=== PATIENT | male | born 1940 | race Caucasian/White ===

== ENCOUNTER 2017-06-05 14:06 | Inpatient (IN) | payer MEDICARE ==
[2017-06-05] VITALS (12 sets, daily range): BP systolic 106–133; BP diastolic 62–87; PULSE 55–101; RESP 16–20; TEMP 97.5–98.5; O2SAT 97–99
[~2017-06-05] VITALS: Ht 188 cm; Wt 73.0 kg
[~2017-06-05 14:06] MED LIST: APIX5TAB PO; CALC-137 PO; CAPT50TA PO; CO Q100C9 PO; HYDR50TA5 PO; ISOS30 PO; NITR0.4S SL; SYNT25TA PO; TAB-TAB PO; ZOCO40TA PO; [UNRECOGNIZED DRUG - CODE] PO
[2017-06-05] MEDS ORDERED: LEVO75TA3 PO (14:47)
[2017-06-05] MEDS ORDERED: DIGO0.12 PO (14:47)
[2017-06-05] MEDS ORDERED: CALC1TAB87 PO (14:47)
[2017-06-05] MEDS ORDERED: PRAD150C PO (14:47)
[2017-06-05] MEDS ORDERED: METO50TA11 PO (14:47)
[2017-06-05] MEDS ORDERED: NITR0.4S SL (14:47)
[2017-06-05] MEDS ORDERED: ISOS30TA3 PO (14:47)
[2017-06-05] MEDS ORDERED: ATOR40TA16 PO (14:47)
[2017-06-05] MEDS ORDERED: CART120C PO (14:47)
[2017-06-05] MEDS ORDERED: MULT-65 PO (14:47)
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
[2017-06-05 15:19] LABS: BASOPHIL % 0.2 % (0.0-2.0); EOSINOPHIL % 0.5 % (0.0-4.0); HEMATOCRIT 44.6 % (39.0-51.0); HEMO FLAGS DIFF FINAL; LYMPH % 21.7 % (9.0-44.0); LYMPHOCYTE # 1.3 TH/MM3 (1.0-4.8); MEAN CELL VOLUME 88.9 FL (80.0-100.0); MEAN CORPUSCULAR HEMOGLOBIN 29.1 PG (27.0-34.0); MEAN CORPUSCULAR HGB CONC 32.7 % (32.0-36.0); MONO % 10.7 % (0.0-8.0); NEUT % 66.9 % (16.0-70.0); PLATELET COUNT 199 TH/MM3 (150-450); RED BLOOD COUNT 5.01 MIL/MM3 (4.50-5.90); RED CELL DISTRIBUTION WIDTH 14.9 % (11.6-17.2); WHITE BLOOD COUNT 5.9 TH/MM3 (4.0-11.0)
[2017-06-05 15:27] LABS: CHLORIDE 103 MEQ/L (98-107); POTASSIUM 3.9 MEQ/L (3.5-5.1); SODIUM (NA) 139 MEQ/L (136-145)
[2017-06-05 15:30] LABS: ANION GAP 7 MEQ/L (5-15); BICARBONATE 29.2 MEQ/L (21.0-32.0); BLOOD UREA NITROGEN 25 MG/DL (7-18)
[2017-06-05 15:33] LABS: GLOMERULAR FILTRATION RATE 54 ML/MIN (>89)
--- NOTE | 2017-06-05 15:48 | RADRPT ---
EXAM DATE/TIME: 06/05/2017 15:27 [facility] COMPARISON: No previous studies available for comparison. INDICATIONS : Short of breath, chest pains for 2 months, worse today MEDICAL HISTORY : Myocardial infarction. SURGICAL HISTORY : CABG. ENCOUNTER: Initial ACUITY: 2 months PAIN SCORE: 6/10 LOCATION: Bilateral chest FINDINGS: Single AP view of the chest. 2.8 cm nodular density in the right upper lung zone may represent bony h ypertrophy at the first costochondral junction. Lungs otherwise clear. Median sternotomy wires. Cardi omediastinal silhouette within normal limits. Minimal blunting left costophrenic sulcus. No evidence of pneumothorax. CONCLUSION: 1. Nodular density right upper lung zone in region of first costochondral junction may represent bony hypertrophy. Recommend followup PA and lateral views. 2. Minimal blunting left costophrenic sulcus indicating small pleural effusion versus scarring. Chaitanya Mcallister MD on June 05, 2017 at 15:38 Board Certified Radiologist. This report was verified electronically.
[2017-06-05] MEDS ORDERED: HEPARIN-D5W 25,000 U/250 ML 250 ML IV PRN (16:00)
[2017-06-05 16:11] LABS: DIGOXIN 0.7 NG/ML (0.8-2.0)
[2017-06-05 16:27] LABS: APTT (PATIENT) 36.6 SEC (24.3-30.1); INTERNATIONAL NORMALIZED RATIO 1.1 RATIO; PROTHROMBIN TIME - PATIENT 12.3 SEC (9.8-11.6)
[2017-06-05] MEDS ORDERED: HEPARIN 25,000 UNITS-D5W 250 ML - PREMIX IV SCH (17:00)
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
[2017-06-05] MEDS ORDERED: NITROGLYCERIN 0.4 MG SL 25 TABS/BTL SL PRN (18:30)
[2017-06-05] MEDS ORDERED: LACTULOSE SYRUP 20 GM/30 ML CUP PO PRN (20:00)
[2017-06-05] MEDS ORDERED: ONDANSETRON HCL 4 MG/2 ML VIAL IV PUSH PRN (20:15)
--- NOTE | 2017-06-05 20:46 | RADRPT ---
EXAM DATE/TIME: 06/05/2017 20:12 [facility] COMPARISON: No previous studies available for comparison. INDICATIONS : Abdominal pain. MEDICAL HISTORY : Myocardial infarction. SURGICAL HISTORY : CABG. ENCOUNTER: Subsequent ACUITY: 3 months PAIN SCORE: 3/10 LOCATION: Abdomen. FINDINGS: Nonspecific gas pattern is seen with gas throughout the gastrointestinal tract. Moderate amount of re tained stool is present throughout the colon. There is post of pathologic distention free air or mass effect. CONCLUSION: Nonspecific gas pattern with moderate amount retained stool in the colon. No evidence of significant ileus or free air. Evans Hugo MD on June 05, 2017 at 20:44 Board Certified Radiologist. This report was verified electronically.
[2017-06-05] MEDS: SODIUM CHLOR 0.9% 1000 ML INJ 1,000 ML IV SCH (21:03)
[2017-06-05] MEDS: METOPROLOL SUCCINATE 25 MG EXTENDED RELEASE TAB PO SCH (21:03)
[2017-06-05] MEDS: DOCUSATE SODIUM 100 MG CAP PO SCH (21:04)
[2017-06-05] MEDS: ATORVASTATIN 40 MG TAB PO SCH (21:04)
[2017-06-05 22:55] LABS: CREATINE KINASE 474 U/L (39-308)
[2017-06-05 23:08] LABS: CKMB 10.8 NG/ML (0.5-3.6)
[2017-06-05 23:14] LABS: APTT (PATIENT) 86.8 SEC (24.3-30.1)
[2017-06-06] VITALS (22 sets, daily range): BP systolic 95–142; BP diastolic 55–88; PULSE 50–102; RESP 16–18; TEMP 97.6–98.5; O2SAT 96–98
[2017-06-06 03:55] LABS: BASOPHIL % 0.5 % (0.0-2.0); EOSINOPHIL # 0.1 TH/MM3 (0-0.4); EOSINOPHIL % 2.9 % (0.0-4.0); HEMATOCRIT 41.3 % (39.0-51.0); HEMO FLAGS DIFF FINAL; LYMPH % 31.7 % (9.0-44.0); LYMPHOCYTE # 1.2 TH/MM3 (1.0-4.8); MEAN CELL VOLUME 89.7 FL (80.0-100.0); MEAN CORPUSCULAR HEMOGLOBIN 29.7 PG (27.0-34.0); MEAN CORPUSCULAR HGB CONC 33.1 % (32.0-36.0); MONO % 11.1 % (0.0-8.0); NEUT % 53.8 % (16.0-70.0); PLATELET COUNT 153 TH/MM3 (150-450); RED CELL DISTRIBUTION WIDTH 14.8 % (11.6-17.2); WHITE BLOOD COUNT 3.8 TH/MM3 (4.0-11.0)
[2017-06-06 04:05] LABS: APTT (PATIENT) 49.6 SEC (24.3-30.1)
[2017-06-06 04:28] LABS: ANION GAP 5 MEQ/L (5-15); BICARBONATE 28.1 MEQ/L (21.0-32.0); BLOOD UREA NITROGEN 22 MG/DL (7-18); CHLORIDE 106 MEQ/L (98-107); GLOMERULAR FILTRATION RATE 80 ML/MIN (>89); POTASSIUM 4.4 MEQ/L (3.5-5.1); SODIUM (NA) 139 MEQ/L (136-145)
[2017-06-06 04:32] LABS: CREATINE KINASE 359 U/L (39-308); LDL CHOLESTEROL 43 MG/DL (0-99)
[2017-06-06 04:44] LABS: CKMB 9.2 NG/ML (0.5-3.6)
[2017-06-06] MEDS: ISOSORBIDE MONONITRATE 30 MG TAB PO SCH (05:53)
[2017-06-06] MEDS: LEVOTHYROXINE SODIUM 75 MCG TAB PO SCH (05:53)
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
[2017-06-06] MEDS: MULTIVITAMIN TAB PO SCH (08:31)
[2017-06-06] MEDS: BISACODYL EC 5 MG TABEC PO SCH (08:31)
[2017-06-06] MEDS: DOCUSATE SODIUM 100 MG CAP PO SCH ×2 (08:32→21:00)
[2017-06-06] MEDS: ASPIRIN 81 MG CHEW TAB CHEW SCH (08:32)
[2017-06-06] MEDS: DIGOXIN 0.125 MG TAB PO SCH (08:32)
[2017-06-06] MEDS: DILTIAZEM-CD 240 MG CAP ER PO SCH (08:32)
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
[2017-06-06] MEDS ORDERED: LACTULOSE SYRUP 20 GM/30 ML CUP PO ONE (09:15)
--- NOTE | 2017-06-06 09:56 | EKG ---
Date Performed: 06/06/2017 Time Performed: 03:34:24 PTAGE: 77 years EKG: Atrial flutter Possible left atrial abnormality Left axis deviation Inferior infarct - age undetermined Lateral ST-T changes are nonspecific Low QRS voltages in limb leads Abnormal ECG PREVIOUS TRACING : 06/05/2017 21.23 Since prior tracing, ventricular response atrial flutter is slightly faster. DOCTOR: Dragan Garíca Interpretating Date/Time 06/06/2017 09:56:14
--- NOTE | 2017-06-06 09:56 | EKG ---
Date Performed: 06/05/2017 Time Performed: 21:23:32 PTAGE: 77 years EKG: Atrial flutter with PVC(s) or aberrant ventricular conduction Possible left anterior fascic ular block Inferior infarct - age undetermined Lateral ST-T changes are nonspecific Low QRS voltages in limb leads Abnormal ECG PREVIOUS TRACING : 06/05/2017 14.04 Since prior tracing, ventricular response atrial flutter is slower and PVCs are now seen. DOCTOR: Dragan García Interpretating Date/Time 06/06/2017 09:55:29
--- NOTE | 2017-06-06 09:56 | EKG ---
Date Performed: 06/05/2017 Time Performed: 14:04:28 PTAGE: 77 years EKG: Atrial flutter INTRAVENTRICULAR CONDUCTION DELAY ABNORMAL ECG PREVIOUS TRACING : 08/02/2013 05.03 Since prior tracing, atrial flutter has replaced Sinus rhyt hm and ST changes are slightly more prominent. DOCTOR: Dragan García Interpretating Date/Time 06/06/2017 09:55:07
[2017-06-06] MEDS ORDERED: FUROSEMIDE 40 MG/4 ML VIAL IV PUSH ONE (11:00)
--- NOTE | 2017-06-06 11:00 | ECHRPT ---
Indication: shortness of breath CONCLUSIONS The left ventricular systolic function is low normal with an estimated ejection fraction in the rang e of 50- 55%. Wall thickness is measured at the upper limits of normal. No regional wall motion abnormalities are present. The left atrial size is moderately dilated. The right atrial size is mildly dilated. Bileaflet mitral valve prolapse (posterior>anterior.) . Mild thickening of the mitral valve leaflets Mitral annular calcification is present. Mild eccentric mitral regurgitation; may be underestimated by TTE Aortic valve sclerosis is present. Mild aortic valve regurgitation. There is trace tricuspid valve regurgitation. There is estimated mild pulmonary hypertension present (range 40-50 mmHg). The inferior vena cava is dilated. BP: 126 / 88 HR: 101 Rhythm: Atrial fibrillation MEASUREMENTS (Male / Female) Normal Values Technical Quality:Good 2D ECHO LV Diastolic Diameter PLAX 5.6 cm 4.2 - 5.9 / 3.9 - 5.3 cm LV Systolic Diameter PLAX 4.1 cm IVS Diastolic Thickness 1.2 cm 0.6 - 1.0 / 0.6 - 0.9 cm LVPW Diastolic Thickness 1.2 cm 0.6 - 1.0 / 0.6 - 0.9 cm LV Relative Wall Thickness 0.4 RV Internal Dim ED PLAX 3.3 cm LVOT Diameter 2.0 cm LA Systolic Diameter LX 5.2 cm 3.0 - 4.0 / 2.7 - 3.8 cm LV Ejection Fraction MOD 4C 54.8 % LV Cardiac Index MOD 4C 4102.8 cm/minm LV Ejection Fraction 4C AL 55.4 % LV Cardiac Index 4C AL 4268.4 cm/minm M-MODE Aortic Root Diameter MM 3.6 cm LA Systolic Diameter MM 5.2 cm LA Ao Ratio MM 1.4 AV Cusp Separation MM 2.3 cm DOPPLER AV Peak Velocity 115.0 cm/s AV Peak Gradient 5.3 mmHg AI Peak Velocity 436.0 cm/s AI Peak Gradient 76.0 mmHg AI Pressure Half Time 456.0 ms LVOT Peak Velocity 84.4 cm/s LVOT Peak Gradient 2.8 mmHg AV Area Cont Eq pk 2.3 cm MV Area PHT 4.0 cm Mitral E Point Velocity 124.0 cm/s Mitral A Point Velocity 54.8 cm/s Mitral E to A Ratio 2.3 LV E' Lateral Velocity 15.1 cm/s Mitral E to LV E' Lateral Ratio 8.2 LV E' Septal Velocity 2.3 cm/s Mitral E to LV E' Septal Ratio 53.0 TR Peak Velocity 296.0 cm/s TR Peak Gradient 35.0 mmHg FINDINGS LEFT VENTRICLE The left ventricular systolic function is low normal with an estimated ejection fraction in the rang e of 50- 55%. Wall thickness is measured at the upper limits of normal. No regional wall motion abnormalities are present. RIGHT VENTRICLE Normal right ventricular size and systolic function. LEFT ATRIUM The left atrial size is moderately dilated. RIGHT ATRIUM The right atrial size is mildly dilated. ATRIAL SEPTUM Normal atrial septal thickness without atrial level shunting by limited color doppler interrogation. AORTA The aortic root and proximal ascending aorta are normal in size on limited imaging. MITRAL VALVE Bileaflet mitral valve prolapse. Mild thickening of the mitral valve leaflets. Mitral annular calcification is present. Mild eccentric mitral regurgitation; may be underestimated by TTE AORTIC VALVE Aortic valve sclerosis is present. Mild aortic valve regurgitation. TRICUSPID VALVE There is trace tricuspid valve regurgitation. There is estimated mild pulmonary hypertension present (range 40-50 mmHg). PULMONARY VALVE The pulmonary valve is not well visualized. VESSELS The inferior vena cava is dilated. PERICARDIUM No pericardial effusion. Dragan García MD (Electronically Signed) Final Date:06 June 2017 10:59
[2017-06-06] MEDS ORDERED: REGADENOSON INJ 0.4 MG/5 ML SYR ONE (12:12)
--- NOTE | 2017-06-06 13:35 | RADRPT ---
EXAM DATE/TIME: 06/06/2017 11:52 [facility] COMPARISON: No previous studies available for comparison. INDICATIONS : Chest pain for 1 day. Angina. Myocardial infarction. DOSE: 25.5 mCi Tc99m Myoview at stress. 8.7 mCi Tc99m Myoview at rest. 0.4 mg Lexiscan STRESS SYMPTOMS: None. EJECTION FRACTION: 47% MEDICAL HISTORY : Cardiovascular disease. Congestive heart failure. Hypertension. SURGICAL HISTORY : CABG Coronary artery stent. ENCOUNTER: Initial ACUITY: 1 day PAIN SCALE: 4/10 LOCATION: Bilateral chest TECHNIQUE: The patient underwent pharmacologic stress with infusion of prescribed dose. Continuous ECG tracing was monitored during stress. Gated SPECT imaging was performed after stress and conventional SPECT i maging was performed at rest. The examination was performed on a SPECT/CT scanner, both attenuation and non-corrected datasets were reviewed. FINDINGS: DISTRIBUTION: The maximum perfused segment at stress is in the inferior wall. PERFUSION STUDY: Larged fixed perfusion abnormality is identified involving the anterior wall, lateral wall and apex. There is mild reperfusion along the inferoseptal portion of the defect. No other reversible abnormali ties are noted. GATED STUDY: Moderate generalized hypokinesia is noted. Ejection fraction is 47%. CONCLUSION: Large predominantly fixed perfusion defect involving the anterior wall, lateral wall and periapical r egion. Mild reperfusion is identified along the inferoseptal and inferoapical region of the defect. RISK CATEGORY: High (>3% Annual Mortality Rate) Evans Hugo MD on June 06, 2017 at 13:29 Board Certified Radiologist. This report was verified electronically.
--- NOTE | 2017-06-06 14:23 | RADRPT ---
EXAM DATE/TIME: 06/06/2017 13:16 [facility] COMPARISON: No previous studies available for comparison. INDICATIONS : Abnormal chest xray. RADIATION DOSE: 5.30 CTDIvol (mGy) MEDICAL HISTORY : Hypertension. Congestive heart failure. Myocardial infarction. Hypertension. SURGICAL HISTORY : CABG ENCOUNTER: Initial ACUITY: 1 day PAIN SCALE: 0/10 LOCATION: chest TECHNIQUE: Volumetric scanning of the chest was performed. Using automated exposure control and adjustment of t he mA and/or kV according to patient size, radiation dose was kept as low as reasonably achievable to obtain optimal diagnostic quality images. DICOM format image data is available electronically for r eview and comparison. Follow-up recommendations for detected pulmonary nodules are based at a minimum on nodule size and pa tient risk factors according to Fleischner Society Guidelines. FINDINGS: LUNGS: Postsurgical pleural-parenchymal scarring is identified in the left lung base. 4 mm nodule is identif ied in the superior segment of the left lower lobe. There is no evidence of consolidating airspace di sease. PLEURAE: Left basilar pleural scarring MEDIASTINUM: Heart is mildly enlarged. Calcific coronary artery disease is noted. Postsurgical changes from prior CABG are identified. AXILLAE: Within normal limits. No lymphadenopathy. MUSCULOSKELETAL: Within normal limits for patient age. MISCELLANEOUS: Gallstones are identified in the gallbladder. CONCLUSION: 1. Left basilar postsurgical scarring following CABG. 2. Mild cardiomegaly. 3. No acute cardiopulmonary process. 4. 4 mm left lower lobe nodule 5. Cholelithiasis Evans Hugo MD on June 06, 2017 at 14:18 Board Certified Radiologist. This report was verified electronically.
[2017-06-06 16:32] LABS: APTT (PATIENT) 45.1 SEC (24.3-30.1)
[2017-06-06] MEDS: SODIUM CHLOR 0.9% 1000 ML INJ 1,000 ML IV SCH (17:02)
[2017-06-06] MEDS: METOPROLOL SUCCINATE 25 MG EXTENDED RELEASE TAB PO SCH (21:31)
[2017-06-06] MEDS: ATORVASTATIN 40 MG TAB PO SCH (21:31)
[2017-06-07] VITALS (23 sets, daily range): BP systolic 118–155; BP diastolic 70–78; PULSE 61–104; RESP 16–18; TEMP 97.8–98.6; O2SAT 96–99
[2017-06-07] MEDS: LEVOTHYROXINE SODIUM 75 MCG TAB PO SCH (06:07)
[2017-06-07] MEDS: ISOSORBIDE MONONITRATE 30 MG TAB PO SCH (06:07)
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
--- NOTE | 2017-06-07 08:28 | PD.CARD.PN ---
Subjective Subjective Remarks no chest pain this AM Objective Medications Current Medications Medications (Trade) Dose Ordered Sig/Manish Route Start Time Stop Time Status Last Admin (Nitrostat Sl) 0.4 mg Q5M PRN SL 06/05/17 18:30 (Lipitor) 40 mg HS PO 06/05/17 21:00 06/06/17 21:31 (Lanoxin) 0.125 mg DAILY PO 06/06/17 09:00 06/06/17 08:32 (Cardizem Cd) 240 mg DAILY PO 06/06/17 09:00 06/06/17 08:32 (Imdur) 30 mg DAILY@0700 PO 06/06/17 07:00 06/07/17 06:07 (Synthroid) 75 mcg DAILY@0600 PO 06/06/17 06:00 06/07/17 06:07 (Toprol Xl) 75 mg HS PO 06/05/17 21:00 06/06/17 21:31 (Theragran) 1 tab DAILY PO 06/06/17 09:00 06/06/17 08:31 (Colace) 100 mg BID PO 06/05/17 21:00 06/06/17 08:32 (Dulcolax Ec) 10 mg DAILY PO 06/06/17 09:00 06/06/17 08:31 (Lactulose Liq) 30 ml DAILY PRN PO 06/05/17 20:00 (Zofran Inj) 4 mg Q6HR PRN IV PUSH 06/05/17 20:15 (Aspirin Chew) 81 mg DAILY CHEW 06/06/17 09:00 06/06/17 08:32 (Pradaxa) 150 mg BID PO 06/07/17 16:00 UNV Vital Signs / I&O Vital Signs Date Time Temp Pulse Resp B/P (MAP) Pulse Ox O2 Delivery O2 Flow Rate FiO2 06/07/17 08:00 98 06/07/17 07:00 98.4 99 18 118/78 (91) 98 06/07/17 07:00 95 06/07/17 06:03 96 06/07/17 05:00 70 06/07/17 04:00 83 06/07/17 03:00 97.8 90 16 122/73 (89) 98 06/07/17 03:00 61 06/07/17 02:07 89 06/07/17 01:00 98 06/07/17 00:00 98 06/06/17 23:00 97.8 102 18 108/63 (78) 97 06/06/17 23:00 100 06/06/17 22:00 60 06/06/17 21:00 50 06/06/17 20:00 66 06/06/17 19:48 21 06/06/17 19:00 97.6 55 16 95/55 (68) 97 06/06/17 19:00 76 06/06/17 18:00 67 06/06/17 17:00 58 06/06/17 16:00 87 06/06/17 15:00 74 06/06/17 15:00 97.6 74 18 142/77 (98) 96 06/06/17 14:00 75 06/06/17 11:00 84 06/06/17 11:00 97.6 84 18 128/55 (79) 97 06/06/17 10:00 82 06/06/17 09:00 99 I/O 06/06/17 06/06/17 06/06/17 06/07/17 06/07/17 06/07/17 07:00 15:00 23:00 07:00 15:00 23:00 Intake Total 997 ml 600 ml 1050 ml Output Total 350 ml 1100 ml 600 ml Balance 647 ml -500 ml 450 ml Intake Oral 480 ml 600 ml 480 ml IV Total 517 ml 570 ml Output Urine Total 350 ml 1100 ml 600 ml # Voids 1 Physical Exam Alert Chest clear CV S1S2 RRR abd benign Ext no edema Laboratory Laboratory Tests Test 06/06/17 15:32 06/07/17 04:50 Activated Partial Thromboplast Time 45.1 SEC 46.0 SEC Assessment and Plan Problem List: (1) Atrial flutter ICD Codes: I48.92 - Unspecified atrial flutter Plan: Recurrent. Plan cath first then consult Dr. Ocampo. He is s/p 2 previous ablations. (2) CAD (coronary artery disease) ICD Codes: I25.10 - Atherosclerotic heart disease of [place] coronary artery without angina pectoris Status: Chronic Plan: Prior CABG. MS ruled out. SPECT abnl. Informed consent for cath. Hi Rivera MD Jun 07, 2017 08:28
[2017-06-07] MEDS ORDERED: HEPARIN-NS/PF INJ 1,000 ML ONE (08:40)
[2017-06-07] MEDS: ASPIRIN 81 MG CHEW TAB CHEW SCH (08:57)
[2017-06-07] MEDS: DIGOXIN 0.125 MG TAB PO SCH (08:57)
[2017-06-07] MEDS: DOCUSATE SODIUM 100 MG CAP PO SCH ×2 (08:58→21:10)
[2017-06-07] MEDS: BISACODYL EC 5 MG TABEC PO SCH (08:58)
[2017-06-07] MEDS: DILTIAZEM-CD 240 MG CAP ER PO SCH (09:01)
[2017-06-07] MEDS: MULTIVITAMIN TAB PO SCH (09:05)
[2017-06-07] MEDS ORDERED: IOHEXOL 350 MG/ML 100 ML BTL (for Cath Lab) OTHER ONE (10:10)
[2017-06-07] MEDS ORDERED: MIDAZOLAM HCL 2 MG/2 ML VIAL ONE (10:13)
[2017-06-07] MEDS ORDERED: BIVALIRUDIN 250 MG VIAL ONE (10:14)
[2017-06-07] MEDS ORDERED: STERILE WATER FOR INJECTION 10 ML VIAL ONE (10:14)
[2017-06-07] MEDS ORDERED: MISC INFORMATION XX ONE (11:15)
[2017-06-07] MEDS ORDERED: BACITRACIN OINT 0.9 GM PKT TOP ONE (11:15)
[2017-06-07] MEDS ORDERED: SODIUM CHLOR 0.9% 1000 ML INJ 1,000 ML IV SCH (11:15)
[2017-06-07] MEDS ORDERED: ONDANSETRON HCL 4 MG/2 ML VIAL IV PUSH PRN (11:15)
--- NOTE | 2017-06-07 11:18 | CATHPROC ---
[facility] HIS Report Study Information Study Number Admission Scheduled Start Study Start [id number] Jun 05 2017 3:57PM 06/07/2017 Jun 07 2017 10:11AM [facility] Service Cardiac Catheterization Admit Source Facility Department Other [facility] - Manufacturer Agent Physician and Clinical Staff Initial Hi [place]allero Steel Pan Form Placing Supervisor Ananya Campoverde,MIKALA Steel Pan Form Placing Supervisor Lu Burr,MIKALA Recorder Catrachito, Zhao,RT(R) Scrub Comfort Choi,PRECISION JIG GRINDER TECH2 Procedures Performed Procedure Location (Site) Vessel Name Angiogram LV LV Ventricle Coronary Angiograms LCA Left Coronary Coronary Angiograms RCA Right Coronary Coronary Angiograms AGUILA-LAD Left Coronary Coronary Angiograms SVG-DIAG Left Coronary Coronary Angiograms SVG-PDA Right Coronary Equipment Time Pallet Stone Positioner Description Size Mfg Part Number Used/Scraped TRANSDUCER, TRUWAVE [id number] 10:29 CLEMENS WALLS * Used W/STOCKCOCK *[id number] [id number] *[id number] *[id number] *[id number] *[id number] PIGTAIL ANG. 145 INFINITI [id number] CATHETER *[id number] 11:00 DAIG/ST. GELY MEDICAL ANGIOSEAL, FR6 VIP FR 6 Used *[id number] 10:29 MEDLINE INDUSTRIES PACK, CCL CUSTOM * Used *[id number] 10:29 MEDLINE PACER PEN, SKIN DUAL W/ RULER * Used *[id number] 10:29 Executive Intermediary MEDICAL SHEATH, FR6.5 PRELUDE 11CM FR 6.5 038ACT Used *[id number] 10:29 Executive Intermediary MEDICAL WIRE, 3MMJ .035 180CM 180CM Used *[id number] 10:29 NAMIC MANIFOLD, 4 PORT * Used *[id number] 10:29 NYCOMED OMNIPAQUE, 350 MG, 100ML 100ML [id number] Used [id number] 10:29 Forensic Logic BLANKET,WARM AIR CCL * Used *[id number] History: Risk Factors Family History of Hypertension Dyslipidemia Previous ND Previous Heart Failure Premature CAD Yes Yes No No No Prior Valve Prior PCI Prior PCIDate Prior CABG Prior CABGDate Surgery No Yes 09/27/2003 Yes 09/27/2001 Cerebrovascular Peripheral Artery Chronic Lung On Dialysis Diabetes Disease Disease Disease No No No No No History: Stress Tests Stress or Imaging Studies Performed Yes Standard Exercise Stress Test No Stress Echo No Stress Test SPECT Stress Test SPECT Result Stress Test SPECT Ischemia Risk/Extent Yes Positive High Stress Test CMR No Cardiac CTA Coronary Calcium Score No No History: Other Current Smoker Method Quit Packs a Day Years Used Pack Years No Cigarettes 15 Years Ago 1 40 40 Labs Hgb (g/dl) Hct (%) RBC (MIL/MM3) WBC (l/cumm) Platelets (thousands) 11.60-17.00 35.00-51.00 4.00-5.90 4.00-11.00 150.00-450.00 13.7 41.3 4.6 3.8 153 Glucose (mg/dl) BUN (mg/dl) Creatinine (mg/dl) BUN:Creatinine (1:x) 74.00-106.00 7.00-18.00 0.50-1.30 10.00-20.00 91 22 0.9 24.4 Na (meq/l) K (meq/l) Cl (meq/l) CO2 (mmol/L) Ca (mg/dl) 136.00-145.00 3.50-5.10 98.00-107.00 21.00-32.00 8.50-10.10 139 4.4 106 28.1 8.5 PT (sec) PTT (sec) INR (PTT:PT) 9.80-11.60 24.30-30.10 0.90-1.10 12.3 46 1.1 Troponin I (ng/ml) CPK-MB (ng/ML) 0.02-0.05 0.50-3.60 0.02 Not Drawn Medication Medication Total Dose (Bolus/Oral) Medication Total Dosage/Unit 1% XYLOCAINE 20 mL VERSED 1 mg Medications (Bolus/Oral) Medication Time Given Dosage/Unit Administered By Reason VERSED 06/07/2017 10:35:16 AM 1 mg Hi Rivera 1 mg VERSED given in lab by Hi Rivera in Left Antecubital via Peripheral IV. Ordered by Gideon Rivera. 1% XYLOCAINE 06/07/2017 10:37:27 AM 20 mL Hi Rivera 20 mL 1% XYLOCAINE given in lab by Hi Rivera in Right Groin via Subcutaneous. Ordered by Hi Rivera. Medication (Drip) Medication Time Given Dosage/Unit Concentration/Unit Diluent (ml) Solution IV Solutions 06/07/2017 10:16:16 AM 0 mL (IV) 500 NaCl .9 Patient arrived on IV Solutions given by Hi Rivera in Left Antecubital via Peripheral IV. Pump/Dr ip Flow = 20 ml/hr using NaCl .9. Ordered by Hi Rivera. Initial Case Assessment Cardiovascular HR Rhythm NIBP Chest Pain 99 sr 130/85 0 Edema Present Skin color Skin None Normal Warm Dry Circulatory - Right Pulses Dorsalis Pedis Femoral 2 2 Scale (0,1,2,3,4,d) Circulatory - Left Pulses Dorsalis Pedis Femoral 2 2 Scale (0,1,2,3,4,d) Neurological State Oriented to time-place- Alert Moves all extremities person Respiration - General Respiration Rate SpO2 (%) O2 (lpm) (B/min) 18 98 0 Final Case Assessment Cardiovascular HR Rhythm NIBP Chest Pain 90 sr 126/85 0 Edema Present Skin color Skin None Normal Warm Dry Circulatory - Right Pulses Dorsalis Pedis Femoral 2 2 Scale (0,1,2,3,4,d) Circulatory - Left Pulses Dorsalis Pedis Femoral 2 2 Scale (0,1,2,3,4,d) Neurological State Oriented to time-place- Alert Moves all extremities person Respiration - General Respiration Rate SpO2 (%) O2 (lpm) (B/min) 18 99 0 Chronological Log Time Study Chronological Log 10:10:56 Patient arrived via Bed. 10:10:58 Patient Name, D.O.B, / Armband Verified By R.N. 10:11:00 Consent signed by the physician and the patient and verified by the Manufacturer Agent staff. 10:11:02 Pre-op and post- op instructions given; patient acknowledges understanding of instructions. Vitals capture started with the following parameters, Patient=Adult, Interval=5 min, Initial Pr zchhrt=130 mmHg, 10:12:35 Deflation Rate=5 mmHg, Cuff placed on Right Arm 10:13:11 PJ=209 bpm, QRXY=477/91 mmhg, SpO2=98.0 %, Salcedo=2 10:14:33 Reference ECG taken 10:16:06 Patient has been NPO for Less than 6Hrs. 10:16:07 Skin Breakdown-Bandaid present on right leg. 10:16:09 Patient Warmer Placed on the Table. 10:16:15 A # 20 IV was noted in the Antecubital (left). Grade = 0 10:16:15 A # 20 IV was noted in the Forearm (left). Grade = 0 Patient arrived on IV Solutions given by Hi Rivera in Left Antecubital via Peripheral IV. P ump/Drip Flow = 20 ml/hr 10:16:16 using NaCl .9. Ordered by Hi Rivera. 10:16:17 History and physical on the chart or being dictated. Assessment: Initial Case, HR=99 BPM, Rhythm=sr, IPIR=389/85 mmhg, Chest Pain=0, Edema=None, Col or=Normal, Skin = Warm, Dry Right Pulses: Tay Ped=2, Femoral=2 10:16:19 Left Pulses: Tay Ped=2, Femoral=2 Neurological: State=Alert, Ox3, AUGUSTE Respiration: Resp=18 B/min, SpO2=98 %, O2=0 lpm 10:18:08 HR=87 bpm, OYEY=149/85 mmhg, SpO2=98.0 %, Resp=19 B/min, Salcedo=2 10:19:07 Bilateral groins prepped with 2% chlorhexidine, and with a 3 min. waiting time. 10:23:31 HR=97 bpm, ZEOS=999/93 mmhg, SpO2=99.0 %, Resp=26 B/min, Salcedo=2 10:28:08 HR=97 bpm, MQLD=582/90 mmhg, SpO2=98.0 %, Resp=13 B/min, Salcedo=2 10:28:13 Pressure channel 1 zeroed. 10:33:05 HR=97 bpm, ULQC=273/86 mmhg, SpO2=97.0 %, Resp=19 B/min, Salcedo=2 10:35:16 1 mg VERSED given in lab by Hi Rivera in Left Antecubital via Peripheral IV. Ordered by Hi Rivera. Time Out. Correct patient, correct procedure,correct physician, ,power injector loaded with con trast with surgical team 10:36:02 present. Time Out Concurred by MD, individual staff and CAN COVERER in procedure. Loaded by Timbo molina, verified by Lashanda Choi. 10:36:39 Presedation re-assessment performed by Manufacturer Agent RN. 10:36:41 Case Start 10:36:43 Verbal Stimulation=2 Physical Stimulation=2 Airway=2 Respiration=2 TOTAL=8. (0=absent, 1=li mited, 2=present) 10:37:27 20 mL 1% XYLOCAINE given in lab by Hi Rivera in Right Groin via Subcutaneous. Ordered b y Hi Rivera. 10:38:08 HR=93 bpm, EQRX=548/86 mmhg, SpO2=97.0 %, Resp=17 B/min, Salcedo=2 10:39:05 Access site was Right Femoral Artery. 10:39:23 A SHEATH, FR6.5 PRELUDE 11CM FR 6.5 was advanced into the Fem Art (right) using the Percuta neous technique. A PIGTAIL ANG. 145 INFINITI CATHETER FR 6 was advanced over a wire. OMNIPAQUE, 350 MG, 100ML 10 0ML was 10:40:01 used for injections. Recorded Pressure: LV, HR=95, Condition=Condition 1 10:40:57 (Left Ventricle) LV 112/-2/6 10:41:38 The LV was injected at 10 cc/sec for a total of 40. OMNIPAQUE, 350 MG, 100ML 100ML used. Recorded Pressure: LV, Ao, HR=81, Condition=Condition 1 10:43:02 (Left Ventricle) LV 100/0/8, (Aorta) Ao 112/60/82 10:43:07 HR=95 bpm, OYHF=346/74 mmhg, SpO2=97.0 %, Resp=19 B/min, Salcedo=2 10:43:37 Catheter was removed A JL 4.5 INFINITI CATHETER FR 6 was advanced over a wire. OMNIPAQUE, 350 MG, 100ML 100ML was us ed for 10:44:10 injections. Recorded Pressure: Ao, HR=94, Condition=Condition 1 10:45:25 (Aorta) Ao 110/68/86 10:45:46 The LCA was injected and visualized at various angles. OMNIPAQUE, 350 MG, 100ML 100ML used . 10:46:47 Catheter was removed A JL 5.0 INFINITI CATHETER FR 6 was advanced over a wire. OMNIPAQUE, 350 MG, 100ML 100ML was us ed for 10:46:49 injections. 10:48:06 HR=90 bpm, DTHW=332/79 mmhg, SpO2=97.0 %, Resp=32 B/min, Salcedo=2 10:49:28 Catheter was removed A JR 4.0 INFINITI CATHETER FR 6 was advanced over a wire. OMNIPAQUE, 350 MG, 100ML 100ML was us ed for 10:49:30 injections. 10:51:00 The RCA was injected and visualized at various angles. OMNIPAQUE, 350 MG, 100ML 100ML used . 10:52:29 The SVG-DIAG was injected and visualized at various angles. OMNIPAQUE, 350 MG, 100ML 100ML used. 10:53:09 HR=94 bpm, JBEA=203/73 mmhg, SpO2=99.0 %, Resp=19 B/min, Salcedo=2 10:53:28 The SVG-PDA was injected and visualized at various angles. OMNIPAQUE, 350 MG, 100ML 100ML u sed. 10:55:32 Catheter was removed A RYLAND INFINITI CATHETER FR 6 was advanced over a wire. OMNIPAQUE, 350 MG, 100ML 100ML was used for 10:55:34 injections. 10:56:33 The AGUILA-LAD was injected and visualized at various angles. OMNIPAQUE, 350 MG, 100ML 100ML used. 10:57:36 Catheter was removed 10:57:55 Case End 10:58:06 An injection in the Fem Art (right) was made through the SHEATH, FR6.5 PRELUDE 11CM FR 6.5 . 10:58:08 HR=89 bpm, ESHA=711/82 mmhg, SpO2=98.0 %, Resp=30 B/min, Salcedo=2 10:59:20 ANGIOSEAL, FR6 VIP FR 6 placement in the Fem Art (right) 11:00:38 Sterile dressing applied to site 11:00:39 No case complications noted. 11:00:41 Cine recording checked. 11:00:48 Bedside Report will be given. 11:00:54 Implantable Device card placed in patient's chart. 11:01:05 Contrast Scanned 11:03:09 HR=92 bpm, VWLG=739/81 mmhg, SpO2=98.0 %, Resp=18 B/min, Salcedo=2 Assessment: Final Case, HR=90 BPM, Rhythm=sr, XJSP=434/85 mmhg, Chest Pain=0, Edema=None, [place] r=Normal, Skin = Warm, Dry Right Pulses: Tay Ped=2, Femoral=2 11:07:51 Left Pulses: Tay Ped=2, Femoral=2 Neurological: State=Alert, Ox3, AUGUSTE Respiration: Resp=18 B/min, SpO2=99 %, O2=0 lpm 11:08:08 VRHV=534/85 mmhg, Salcedo=2 11:08:29 Vitals capture stopped. 11:12:03 [facility] - Contrast Media Used In Study Contrast Total Opened (mL) Total Used (mL) Total Wasted (mL) Omnipaque 90 90 0 End Study - Maximum Contrast Load Max Contrast Load (mL) 410.1 End Study - Radiation Exposure Fluoro Time (minutes) 5.1 End Study - Patient Disposition Complications Transferred To Telemetry Bed
--- NOTE | 2017-06-07 13:08 | MA ---
cc: UBALDO WESTON M.D. DATE: PROCEDURE PERFORMED Left heart catheterization, left ventriculography, coronary angiography, bypass graft angiography including left internal mammary arteriography, right femoral angiography with Angio-Seal placement. BRIEF HISTORY Renard Thompson is a 77-year-old man with known coronary artery disease, admitted to the hospital with angina and recurrent atrial flutter. Nuclear stress test was high-risk positive and for this reason, cardiac catheterization was being performed. DESCRIPTION OF PROCEDURE The patient was brought to cardiac corn lab technician in a fasting state. Using 1% lidocaine for local anesthesia, a 6.5-Haitian sheath was inserted in the right femoral artery. Left ventricular pressure was then recorded using a pigtail catheter followed by left ventriculography and then a pullback. Coronary angiography was then completed using a left 5 Sean for left coronary artery and a right 4 Sean for the right coronary artery. Angiography of the two vein grafts was performed using a right Sean catheter. Angiography of internal mammary bypass was performed using an RYLAND catheter. Angiography was then obtained of the right femoral artery via the sheath followed by uncomplicated Angio-Seal placement with good hemostasis. There were no complications. FINDINGS I. HEMODYNAMICS: Left ventricular pressure was 100 systolic with an end-diastolic pressure of 8, aortic pressure was 110/68 with a mean of 86. II. LEFT VENTRICULOGRAPHY: Left ventriculography showed a peculiar shaped left ventricle. Ejection fraction appears to be about 40%. There is 1+ mitral regurgitation. III. CORONARY ANGIOGRAPHY The left main coronary artery is very short with flush occlusion of the ostium of the LAD. The circumflex artery is patent with irregularities throughout. The right coronary artery is dominant with 30% proximal and 20% proximal to mid stenoses and mild irregularities. IV. BYPASS GRAFTS The left internal mammary bypass graft to the mid LAD is widely patent. Saphenous vein graft to the major diagonal branch is widely patent. It is almost like a ramus intermediate type vessel. The saphenous vein graft to a very distal small posterolateral branch is widely patent. CONCLUSIONS 1. Normal hemodynamics. 2. Moderately impaired LV function with estimated ejection fraction of 40%. 3. Patent LAD, diagonal grafts were totally occluded, LAD. Patent vein graft to a small distal posterolateral branch of the circumflex artery. Only mild disease, right coronary artery. RECOMMENDATIONS Medical therapy for the coronary disease. Will consult Dr. Ocampo for the atrial flutter. MD FRANCESCA Mas/MELANIE /11:13 AM /12:41 PM
[2017-06-07] MEDS ORDERED: DABIGATRAN ETEXILATE 150 MG CAP PO SCH (16:00)
[2017-06-07] MEDS: HEPARIN-D5W 25,000 U/250 ML 250 ML IV PRN (21:00)
[2017-06-07] MEDS: ATORVASTATIN 40 MG TAB PO SCH (21:10)
[2017-06-07] MEDS: METOPROLOL SUCCINATE 25 MG EXTENDED RELEASE TAB PO SCH (21:11)
[2017-06-08] VITALS (24 sets, daily range): BP systolic 108–132; BP diastolic 60–92; PULSE 42–102; RESP 16–22; TEMP 97.9–98.4; O2SAT 97–98
[2017-06-08 04:10] LABS: AUTOMATED NEUTROPHIL # 3.5 TH/MM3 (1.8-7.7); BASOPHIL % 0.3 % (0.0-2.0); EOSINOPHIL # 0.1 TH/MM3 (0-0.4); EOSINOPHIL % 1.4 % (0.0-4.0); HEMATOCRIT 41.1 % (39.0-51.0); HEMO FLAGS DIFF FINAL; LYMPH % 25.3 % (9.0-44.0); LYMPHOCYTE # 1.4 TH/MM3 (1.0-4.8); MEAN CELL VOLUME 89.4 FL (80.0-100.0); MEAN CORPUSCULAR HEMOGLOBIN 30.9 PG (27.0-34.0); MEAN CORPUSCULAR HGB CONC 34.5 % (32.0-36.0); MONO % 10.7 % (0.0-8.0); NEUT % 62.3 % (16.0-70.0); PLATELET COUNT 146 TH/MM3 (150-450); RED CELL DISTRIBUTION WIDTH 14.8 % (11.6-17.2); WHITE BLOOD COUNT 5.6 TH/MM3 (4.0-11.0)
[2017-06-08 04:14] LABS: APTT (PATIENT) 40.1 SEC (24.3-30.1)
[2017-06-08 04:15] LABS: APTT (PATIENT) 39.4 SEC (24.3-30.1)
[2017-06-08 04:23] LABS: BICARBONATE 26.5 MEQ/L (21.0-32.0); POTASSIUM 4.1 MEQ/L (3.5-5.1)
[2017-06-08] MEDS: ISOSORBIDE MONONITRATE 30 MG TAB PO SCH (06:10)
[2017-06-08] MEDS: LEVOTHYROXINE SODIUM 75 MCG TAB PO SCH (06:10)
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
[2017-06-08] MEDS: DILTIAZEM-CD 240 MG CAP ER PO SCH (08:17)
[2017-06-08] MEDS: DIGOXIN 0.125 MG TAB PO SCH (08:17)
[2017-06-08] MEDS: ASPIRIN 81 MG CHEW TAB CHEW SCH (08:18)
[2017-06-08] MEDS: MULTIVITAMIN TAB PO SCH (08:18)
[2017-06-08] MEDS: BISACODYL EC 5 MG TABEC PO SCH (08:18)
[2017-06-08] MEDS: DOCUSATE SODIUM 100 MG CAP PO SCH ×2 (08:18→20:54)
[2017-06-08] MEDS: AMIODARONE 200 MG TAB PO SCH ×2 (10:30→20:53)
[2017-06-08 14:33] LABS: APTT (PATIENT) 37.2 SEC (24.3-30.1)
[2017-06-08] MEDS: ATORVASTATIN 40 MG TAB PO SCH (20:54)
[2017-06-08 22:46] LABS: APTT (PATIENT) 46.1 SEC (24.3-30.1)
--- NOTE | 2017-06-08 22:58 | MB ---
cc: JORGE L MONTALVO M.D. DATE OF CONSULTATION 06/08/2017 Electrophysiology consult. REASON FOR CONSULTATION Atrial fibrillation, atrial flutter. HISTORY OF THE PRESENT ILLNESS Mr. Thompson is a 77-year-old gentleman with history of coronary artery disease, coronary bypass grafting, atrial fibrillation, atrial flutter. He had a previous atrial fibrillation and atrial tachycardia ablation and atrial flutter in August 03, 2013. Since then the gentleman was doing okay. He was admitted on June 06, 2017 due to tachyarrhythmia and chest pain. Left heart catheterization was done by Dr. Rivera that indicated nonocclusive disease. Heart rate continued to be high. Pradaxa was stopped. He is on heparin. I was consulted for evaluation and management. The chart was reviewed. The patient was evaluated. ALLERGIES LATEX. SOCIAL HISTORY Gentleman denies smoking and drinking. FAMILY HISTORY Noncontributory to his current medical condition. MEDICATIONS He is on: 1. IV Heparin. 2. He is on aspirin 81 mg a day. 3. Lipitor 40 mg a day. 4. He is on digoxin 0.125 mg a day. 5. Cardizem CD 240 mg a day. 6. Imdur 30 mg a day. 7. Levoxyl. 8. Metoprolol 75 mg a day. REVIEW OF SYSTEMS Currently the patient refers no chest pain. No chest discomfort. No vomiting. No fevers. There is some palpitation and shortness of breath. PHYSICAL EXAMINATION GENERAL: Alert, fully oriented. VITAL SIGNS: His blood pressure is 127/88, pulse on the monitor is around 110, 105. Respiratory rate 18. LUNGS: Ventilated. CARDIOVASCULAR: S1-S2 tachycardic, irregular. There is a systolic ejection murmur 2-3/6. ABDOMEN: Soft. No mass. No bruit. EXTREMITIES: No edema. Electrocardiogram on hospitalization indicated atrial fibrillation, atrial tachycardia, possible atrial flutter. LABORATORY DATA Hemoglobin 14.2, white blood cell 5.6. Potassium 4.1, creatinine 0.91. Troponin less than 0.02. INR 1.1. ASSESSMENT AND RECOMMENDATIONS Mr. Thompson currently is in atrial fibrillation, atrial tachyarrhythmia. Heart rate very difficult to control. On digoxin, Cardizem and metoprolol. I am going to DC the digoxin and Cardizem. I am going to add amiodarone. Electrophysiology study and ablation discussed. The risks, the nature and the benefit of the procedure are clearly stated to him. The risks include pneumothorax, cardiac perforation, stroke and even . He understood and agreed to proceed. Gentleman had breakfast around 9-9:30 in the morning. Waiting for clearance from anesthesiologist to schedule the case. I will keep the patient in the meantime n.p.o. MD CHLOE Higgins/KK /10:09 AM /10:44 PM
[2017-06-09] VITALS (26 sets, daily range): BP systolic 105–139; BP diastolic 51–93; PULSE 61–100; RESP 17–20; TEMP 98–98.4; O2SAT 96–97
[2017-06-09] MEDS: LEVOTHYROXINE SODIUM 75 MCG TAB PO SCH (05:29)
[2017-06-09] MEDS: ISOSORBIDE MONONITRATE 30 MG TAB PO SCH (05:29)
[2017-06-09 06:09] LABS: APTT (PATIENT) 51.1 SEC (24.3-30.1)
[2017-06-09] MEDS: BISACODYL EC 5 MG TABEC PO SCH (08:10)
[2017-06-09] MEDS: DILTIAZEM-CD 240 MG CAP ER PO SCH (08:10)
[2017-06-09] MEDS: ASPIRIN 81 MG CHEW TAB CHEW SCH (08:11)
[2017-06-09] MEDS: AMIODARONE 200 MG TAB PO SCH ×2 (08:11→20:21)
[2017-06-09] MEDS: DOCUSATE SODIUM 100 MG CAP PO SCH ×2 (08:11→20:20)
[2017-06-09] MEDS: MULTIVITAMIN TAB PO SCH (08:12)
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
[2017-06-09] MEDS: HEPARIN-D5W 25,000 U/250 ML 250 ML IV PRN (18:13)
--- NOTE | 2017-06-09 18:19 | HHI.PR ---
Subjective Remarks Feeling ok Objective Vital Signs Date Time Temp Pulse Resp B/P (MAP) Pulse Ox O2 Delivery O2 Flow Rate FiO2 06/09/17 17:36 97 21 06/09/17 16:24 98.3 61 17 119/56 (77) 97 06/09/17 12:00 90 06/09/17 12:00 98.0 97 18 125/51 (75) 97 06/09/17 11:00 98.0 97 18 125/51 (75) 97 06/09/17 09:48 97 06/09/17 08:00 98.4 97 18 139/93 (108) 97 06/09/17 08:00 100 06/09/17 06:00 93 06/09/17 05:00 92 06/09/17 04:00 95 06/09/17 04:00 98.0 95 18 115/86 (96) 97 06/09/17 03:00 90 06/09/17 02:00 93 06/09/17 01:00 74 06/09/17 00:00 98.3 78 20 105/52 (69) 96 06/09/17 00:00 78 06/08/17 23:00 75 06/08/17 22:00 78 06/08/17 21:00 72 06/08/17 20:00 77 06/08/17 20:00 98.0 77 22 110/60 (77) 98 I/O 06/08/17 06/08/17 06/08/17 06/09/17 06/09/17 06/09/17 07:00 15:00 23:00 07:00 15:00 23:00 Intake Total 423 ml 600 ml 560 ml 696 ml Output Total 700 ml 750 ml 800 ml 800 ml Balance -277 ml -150 ml -240 ml -104 ml Intake Oral 360 ml 600 ml 480 ml 600 ml IV Total 63 ml 80 ml 96 ml Output Urine Total 700 ml 750 ml 800 ml 800 ml # Bowel Movements 0 0 1 Result Diagram: 06/08/1733006/08/17330 Imaging Alert, fully oriented Lungs: ventilated Heart: s1, S2 irregular, no gallop Abdomen: soft, no mass Ext: no edema Last Impressions Myocardial Perfusion Scan Nuc Med 06/06/17 0000 Signed Impressions: Service Date/Time: Tuesday, June 06, 2017 11:52 - CONCLUSION: Large predominantly fixed perfusion defect involving the anterior wall, lateral wall and periapical region. Mild reperfusion is identified along the inferoseptal and inferoapical region of the defect. RISK CATEGORY: High (>3%% Annual Mortality Rate) Evans Hugo MD Chest CT 06/06/17 0000 Signed Impressions: Service Date/Time: Tuesday, June 06, 2017 13:16 - CONCLUSION: 1. Left basilar postsurgical scarring following CABG. 2. Mild cardiomegaly. 3. No acute cardiopulmonary process. 4. 4 mm left lower lobe nodule 5. Cholelithiasis Evans Hugo MD Chest X-Ray 06/05/17 1506 Signed Impressions: Service Date/Time: Monday, June 05, 2017 15:27 - CONCLUSION: 1. Nodular density right upper lung zone in region of first costochondral junction may represent bony hypertrophy. Recommend followup PA and lateral views. 2. Minimal blunting left costophrenic sulcus indicating small pleural effusion versus scarring. Chaitanya Mcallister MD Abdomen X-Ray 06/05/17 0000 Signed Impressions: Service Date/Time: Monday, June 05, 2017 20:12 - CONCLUSION: Nonspecific gas pattern with moderate amount retained stool in the colon. No evidence of significant ileus or free air. Evans Hugo MD Current Medications Medications (Trade) Dose Ordered Sig/Manish Route Start Time Stop Time Status Last Admin (Nitrostat Sl) 0.4 mg Q5M PRN SL 06/05/17 18:30 (Lipitor) 40 mg HS PO 06/05/17 21:00 06/08/17 20:54 (Cardizem Cd) 240 mg DAILY PO 06/06/17 09:00 06/09/17 08:10 (Imdur) 30 mg DAILY@0700 PO 06/06/17 07:00 06/09/17 05:29 (Synthroid) 75 mcg DAILY@0600 PO 06/06/17 06:00 06/09/17 05:29 (Theragran) 1 tab DAILY PO 06/06/17 09:00 06/09/17 08:12 (Colace) 100 mg BID PO 06/05/17 21:00 06/09/17 08:11 (Dulcolax Ec) 10 mg DAILY PO 06/06/17 09:00 06/08/17 08:18 (Lactulose Liq) 30 ml DAILY PRN PO 06/05/17 20:00 06/09/17 05:29 (Zofran Inj) 4 mg Q6HR PRN IV PUSH 06/05/17 20:15 (Aspirin Chew) 81 mg DAILY CHEW 06/06/17 09:00 06/09/17 08:11 (Zofran Inj) 4 mg Q4H PRN IV PUSH 06/07/17 11:15 Heparin Sodium/ Dextrose 250 ml @ 8.856 mls/ hr TITRATE PRN IV 06/07/17 14:30 Future hold 06/09/17 18:13 (Cordarone) 400 mg BID PO 06/08/17 10:30 06/12/17 21:01 06/09/17 08:11 (Cordarone) 200 mg DAILY PO 06/13/17 09:00 (Restoril) 15 mg HS PRN PO 06/09/17 14:30 Assessment and Plan Problem List: (1) Afib ICD Codes: I48.91 - Unspecified atrial fibrillation Status: Chronic Plan: In atrial fibrillation HR high EPS and ablation tomorrow AM Case discussed with patient (2) Chest pain ICD Codes: R07.9 - Chest pain, unspecified Status: Acute Plan: No chest pain reported (3) CAD (coronary artery disease) ICD Codes: I25.10 - Atherosclerotic heart disease of [place] coronary artery without angina pectoris Status: Chronic Fiordaliza Ocampo MD Jun 09, 2017 18:19
[2017-06-09] MEDS: TEMAZEPAM 15 MG CAP PO PRN (20:21)
[2017-06-09] MEDS: ATORVASTATIN 40 MG TAB PO SCH (20:21)
[2017-06-09 22:01] LABS: APTT (PATIENT) 46.3 SEC (24.3-30.1); PROTHROMBIN TIME - PATIENT 11.6 SEC (9.8-11.6)
[2017-06-09 22:06] LABS: BICARBONATE 27.4 MEQ/L (21.0-32.0); POTASSIUM 3.7 MEQ/L (3.5-5.1)
[2017-06-09 22:23] LABS: AUTOMATED NEUTROPHIL # 3.1 TH/MM3 (1.8-7.7); BASOPHIL % 0.2 % (0.0-2.0); EOSINOPHIL % 0.8 % (0.0-4.0); HEMATOCRIT 39.9 % (39.0-51.0); HEMO FLAGS DIFF FINAL; LYMPH % 25.2 % (9.0-44.0); LYMPHOCYTE # 1.3 TH/MM3 (1.0-4.8); MEAN CELL VOLUME 89.5 FL (80.0-100.0); MEAN CORPUSCULAR HEMOGLOBIN 30.2 PG (27.0-34.0); MEAN CORPUSCULAR HGB CONC 33.7 % (32.0-36.0); MONO % 11.3 % (0.0-8.0); NEUT % 62.5 % (16.0-70.0); PLATELET COUNT 157 TH/MM3 (150-450); RED BLOOD COUNT 4.46 MIL/MM3 (4.50-5.90); RED CELL DISTRIBUTION WIDTH 15.2 % (11.6-17.2)
[2017-06-10] VITALS (17 sets, daily range): BP systolic 118–126; BP diastolic 68–82; PULSE 73–92; RESP 18–20; TEMP 97.4–98.4; O2SAT 95–99
[2017-06-10] MEDS: ISOSORBIDE MONONITRATE 30 MG TAB PO SCH (06:12)
[2017-06-10] MEDS: LEVOTHYROXINE SODIUM 75 MCG TAB PO SCH (06:13)
[2017-06-10] MEDS ORDERED: FAMOTIDINE 20 MG/2 ML VIAL ONE (06:29)
[2017-06-10] MEDS ORDERED: PROTAMINE SULFATE 50 MG/5 ML VIAL ONE (06:41)
[2017-06-10] MEDS ORDERED: ISOPROTERENOL HCL 1 MG/5 ML AMP ONE (06:41)
[2017-06-10] MEDS ORDERED: HEPARIN-NS/PF INJ 500 ML ONE (06:41)
[2017-06-10] MEDS ORDERED: HEPARIN SODIUM - IV 10,000 UNITS/10 ML VIAL ONE (06:42)
[2017-06-10] MEDS ORDERED: SODIUM CHLOR 0.9% 250 ML INJ 250 ML ONE (06:42)
[2017-06-10] MEDS: DOCUSATE SODIUM 100 MG CAP PO SCH ×2 (09:00→20:25)
[2017-06-10] MEDS ORDERED: SODIUM CHLOR 0.9% 250 ML INJ 250 ML IV PRN (10:00)
[2017-06-10] MEDS ORDERED: ATROPINE SULFATE 1 MG/ML VIAL IV PUSH PRN (10:00)
[2017-06-10] MEDS ORDERED: LIDOCAINE HCL 1% 50 ML VIAL INFIL PRN (10:00)
[2017-06-10] MEDS ORDERED: METOCLOPRAMIDE HCL 10 MG/2 ML VIAL IV PUSH PRN (10:00)
[2017-06-10] MEDS ORDERED: BACITRACIN OINT 0.9 GM PKT TOP ONE (10:00)
[2017-06-10] MEDS ORDERED: LORazepam 2 MG/ML VIAL IV PUSH PRN (10:00)
[2017-06-10] MEDS ORDERED: oxyCODONE/ACETAMINOPHEN 5 MG/325 MG TAB PO PRN ×2 (10:00)
[2017-06-10] MEDS ORDERED: ONDANSETRON HCL 4 MG/2 ML VIAL IV PUSH PRN (10:00)
[2017-06-10] MEDS ORDERED: DO NOT ADM ANY ANTICOAGULANT DRUGS PRN (11:01)
[2017-06-10] MEDS ORDERED: PROPOFOL 200 MG/20 ML AMP IV ONE (12:00)
[2017-06-10] MEDS ORDERED: GLYCOPYRROLATE 1 MG/5 ML SYRINGE IV PUSH ONE (12:00)
[2017-06-10] MEDS ORDERED: NEOSTIGMINE 3 MG/3 ML SYR IV ONE (12:00)
[2017-06-10] MEDS ORDERED: ROCURONIUM INJ 50 MG/5 ML SYRINGE IV PUSH ONE (12:00)
[2017-06-10] MEDS ORDERED: DEXAMETHASONE SOD PHOS 4 MG/ML VIAL IV ONE (12:00)
[2017-06-10] MEDS ORDERED: ePHEDrine/NS 25 MG/5 ML SYR IV ONE (12:00)
[2017-06-10] MEDS ORDERED: LIDOCAINE HCL 1% PF 5 ML AMPULE OTHER ONE (12:00)
[2017-06-10] MEDS ORDERED: MIDAZOLAM HCL 2 MG/2 ML VIAL IV ONE (12:00)
[2017-06-10] MEDS ORDERED: PHENYLEPH/NS 1000 MCG/10 ML SYR IV ONE (12:00)
[2017-06-10 13:10] LABS: APTT (PATIENT) 44.9 SEC (24.3-30.1)
[2017-06-10] MEDS: BISACODYL EC 5 MG TABEC PO SCH (14:08)
[2017-06-10] MEDS: MULTIVITAMIN TAB PO SCH (14:08)
[2017-06-10] MEDS: AMIODARONE 200 MG TAB PO SCH ×2 (14:09→20:25)
[2017-06-10] MEDS: ASPIRIN 81 MG CHEW TAB CHEW SCH (14:09)
--- NOTE | 2017-06-10 14:49 | PD.CARD ---
Atrial Fibrillation Ablation PROCEDURE DATE: Jun 10, 2017 PROCEDURES PERFORMED: 1. Electrophysiology study on Isuprel infusion 2. CS cannulation 3. 3-D mapping 4. Transseptal approach 5. Right and left heart catheterization 6. Intracardiac echo 7. Radiofrequency ablation of atrial fibrillation 8. Pulmonary vein isolation 9. Posterior wall ablation 10. Mitral valve isolation 11. Mitral line creation 12. Left atrial tachycardia ablation 13. Roof line creation 14. Floor line creation 15. Anterior and posterior ablation 16. Cardioversion INDICATIONS FOR THE PROCEDURE Mr. Thompson is a 77-year-old male with hx of atrial fibrillation, previous ablation around 4 years ago, symptomatic, on anticoagulation, HR cannot be control with medications, referred for electrophysiology study and ablation. The risks, the nature and the benefits of the procedure were clearly stated to him. The risks include pneumothorax, cardiac perforation, stroke, need for open heart surgery and even . The patient understood and agreed to proceed. DESCRIPTION OF THE PROCEDURE IN DETAIL As written informed consent was obtained prior to esophageal echocardiogram, the patient was kept on the table where he was prepped and draped in the usual sterile fashion. Conscious sedation was initiated and maintained throughout the procedure by the anesthesiologist. Once sedation was verified, the right and left inguinal areas were anesthetized with 2% Xylocaine. Using modified Seldinger technique, the left femoral vein was cannulated on three occasions, three guidewires were advanced. Over the wire a 6, 7 and a 10-[place] Hemaquet were advanced. Then the left femoral artery was cannulated on one occasion, one guidewire was advanced. Over the wire a 4-[place] Hemaquet was advanced. Then the right femoral vein was cannulated on one occasion, one guidewire was advanced. Over the wire a 8-[place] Hemaquet was advanced. Then under fluoroscopic guidance through the 6 and 7-[place] Hemaquet, two 5-[place] Heidy curved quadripolar electrophysiology catheters were advanced and placed around the His as well as coronary sinus. Basic interval was measured. The patient was in atrial fibrillation. Through the 10-[place] Hemaquet, a [employer] AcuNav intracardiac echo catheter was advanced and placed at the right atrium. Multiple view was obtained. There is no pericardial effusion, pulmonary vein was seen, atrial septal was visualized. Then the 8-[place] Hemaquet in the right femoral vein was exchanged for Agilis transseptal sheath that was placed all the way to the superior vena cava. Through the sheath a Nuris needle was advanced, then the sheath, the dilator and the needle were progressed until foci engaged. Once engaged, the needle was advanced. RF was delivered for 2 seconds. I was able to cross into the left atrium. Once the needle crossed, the dilator was advanced. Once the dilator crossed, the sheath was advanced. Once the sheath crossed, the dilator and the needle were removed. At this point I did flood the system and fluid movement was seen in the left atrium the indicates the sheath is in good position. The patient already received 10,000 units of heparin. The goal is to keep an ACT around 350 during ablation. Then through the sheath a [employer] [place] 20 pulse circumferential catheter was advanced. Using EXO5 endocardial solution mapping system, a two-dimensional configuration of the left atrium was obtained. Points were taken at the left superior and inferior veins, right superior and inferior veins, mitral valve, and appendages. Then through the sheath a [employer]. Robinson TactiCath 65cm 3.5mm irrigated tipped mapping and radiofrequency ablation catheter was advanced. Esophageal probe was placed temperature monitoring during ablation. When it increased to 0.5 degrees Celsius above baseline, I moved to a different area of the atrium. First I did isolate the left superior vein. The left inferior vein was quiet. I did make a big agdaagux around the veins. Posterior wall was ablated. Patient went to left atrial tachycardia. Then a roof line was created. Early activation was anterior roof. Tachycardia CL prolonged during ablation. A floor line was created, a mitral line was isolated, then the mitral valve was isolated. I did create a line from the floor to the roof area, passing by the left atrial appendage. Then the right superior and inferior veins were isolated. I did remap the atrium. Then posterior floor was ablated. Tachycardia CL prolonged to 320 ms. Further mapping was performed. Activation shifted. I decided to map the CS. Ablation was performed. CL prolonged but activation shifted again. Right atrial tach was mapped. There was a complete dissociation between the right and left atrium. There is no significant signal in the left atrium. At this point I decided to proceed with cardioversion. A 200 sync biphasic joule was delivered that converted the patient into sinus rhythm. There was no signal into the vein, pacing from the vein showed no conduction to the atrium. Isuprel infusion was initiated at 20 mcg for 10 minutes. No tachyarrhythmia was induced, post Isuprel no tachyarrhythmia was induced. At that point the procedure was complete. All catheters were removed, atrial septal sheath was exchanged for 9-[place] Hemaquet, intracardiac echo showed no pericardial effusion. There is still good flow in the pulmonary veins. The patient is going to be transferred to the recovery room. No incident report. The patient tolerated the procedure. Blood loss was minimal. FINDINGS 1. Electrocardiogram: At baseline the patient was in atrial fibrillation, post procedure the patient was in sinus rhythm. 2. Basic interval: Base cycle length was around 520. Post ablation she was around 860 milliseconds. AH at 100 and HV at 60 milliseconds. 3. Tachyarrhythmia: Atrial fibrillation was mapped and ablated. Atrial tachycardia was ablated. The ablation was successful. CONCLUSION Successful electrophysiology study, mapping, radiofrequency ablation of atrial fibrillation, left atrial tachycardia, pulmonary vein isolation, posterior ablation, mitral valve isolation, mitral line creation, roof line creation, floor line creation, left atrial tachycardia, and cardioversion. COMMENTS AND RECOMMENDATIONS The patient is going to be transferred to the telemetry unit. Will be observed and when stable can be discharged home. Fiordaliza Ocampo MD Jun 10, 2017 14:49
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
--- NOTE | 2017-06-10 17:38 | EKG ---
Date Performed: 06/10/2017 Time Performed: 11:24:33 PTAGE: 77 years EKG: JUNCTIONAL RHYTHM BORDERLINE LEFT AXIS DEVIATION MODERATE INTRAVENTRICULAR CONDUCTION DELAY NONSPECIFIC ST & T-WAVE ABNORMALITY SINCE PREVIOUS TRACING 06/06/2017, ST-T CHANGES INFERIORLY HAVE I MPROVED , ST-T CHANGES ANTERIORLATERALY ARE SOMEWHAT WORSE. PREVIOUS TRACING READ INFERIOR INFARCT -AGE UNDETERMINED CRITERIA NOT MET ON THIS TRACING. AL INTERVAL IS PROLONGED AT .26 ABNORMAL ECG PREVIOUS TRACING : 06/06/2017 03.34 DOCTOR: Henry Rai Interpretating Date/Time 06/10/2017 17:37:30
[2017-06-10] MEDS: ATORVASTATIN 40 MG TAB PO SCH (20:25)
[2017-06-10] MEDS: DABIGATRAN ETEXILATE 150 MG CAP PO SCH (20:25)
[2017-06-10] MEDS: TEMAZEPAM 15 MG CAP PO PRN (20:29)
[2017-06-11] VITALS (10 sets, daily range): BP systolic 113–146; BP diastolic 67–89; PULSE 68–88; RESP 16–20; TEMP 97.2–98.1; O2SAT 94–97
[2017-06-11] MEDS: LEVOTHYROXINE SODIUM 75 MCG TAB PO SCH (06:00)
[2017-06-11] MEDS: ISOSORBIDE MONONITRATE 30 MG TAB PO SCH (07:00)
[2017-06-11] MEDS ORDERED: AMIO200T PO (07:48)
[2017-06-11] MEDS ORDERED: ASPI81CH25 CHEW (07:48)
[2017-06-11 07:51] LABS: APTT (PATIENT) 33.1 SEC (24.3-30.1); INTERNATIONAL NORMALIZED RATIO 1.1 RATIO; PROTHROMBIN TIME - PATIENT 11.8 SEC (9.8-11.6)
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
[2017-06-11 08:03] LABS: HEMATOCRIT 42.5 % (39.0-51.0); MEAN CELL VOLUME 90.2 FL (80.0-100.0); MEAN CORPUSCULAR HGB CONC 34.3 % (32.0-36.0); PLATELET COUNT 158 TH/MM3 (150-450); RED BLOOD COUNT 4.71 MIL/MM3 (4.50-5.90); RED CELL DISTRIBUTION WIDTH 15.3 % (11.6-17.2); REVIEW FLAG FINAL; WHITE BLOOD COUNT 9.9 TH/MM3 (4.0-11.0)
[2017-06-11] MEDS: MULTIVITAMIN TAB PO SCH (08:17)
[2017-06-11] MEDS: DABIGATRAN ETEXILATE 150 MG CAP PO SCH (08:18)
[2017-06-11] MEDS: AMIODARONE 200 MG TAB PO SCH (08:19)
[2017-06-11] MEDS: DOCUSATE SODIUM 100 MG CAP PO SCH (08:19)
[2017-06-11] MEDS: ASPIRIN 81 MG CHEW TAB CHEW SCH (08:20)
[2017-06-11] MEDS: BISACODYL EC 5 MG TABEC PO SCH (08:20)
--- NOTE | 2017-06-11 13:46 | EKG ---
Date Performed: 06/11/2017 Time Performed: 06:02:00 PTAGE: 77 years EKG: Sinus rhythm with PVC(s) with 1st degree A-V block Consider left atrial abnormality Leftward axis Lateral ST-T ch anges are nonspecific Abnormal ECG Compared to prior electrocardiogram, Premature ventricular contrac tions are now present and Nonspecific ST and T wave abnormalities are less marked PREVIOUS TRACING : 06/10/2017 11.24 DOCTOR: Ang Bone Interpretating Date/Time 06/11/2017 13:45:25
[2017-06-13] MEDS ORDERED: AMIODARONE 200 MG TAB PO SCH (09:00)
--- NOTE | 2017-06-14 10:17 | CATHPROC ---
[employer] HIS Report Study Information Study Number Scheduled Start Study Start [id number] 06/10/2017 Jun 10 2017 6:44AM Referring Institution Admit Source Facility Department 1 Other [facility] - Roll Machine Operator Physician and Clinical Staff Initial Fiordaliza Rebollar Cnc Milling Machine Operator Joni Meyer,RT(R) Cnc Milling Machine Operator Comfort Choi,CHARHOUSE WORKER TECH2 Other Anesthesia, MANAGER DELI Recorder Lu Burr,RN Recorder Chris BACH, Larissa Harrington RCIS Procedures Performed Procedure Location (Site) Vessel Name Ablation Procedure Cardioversion ICE CATHETER INSERT RA Atruim RF Ablation Coronary Sinus Other RF Ablation LT. ATRIUM LT. ATRIUM Equipment Time Drafter Castings Description Size Mfg Part Number Used/Scraped NEEDLE, TRANSSEPTAL NRG 98 06:52 [facility] [id number] Used C1 [employer]/ EP 06:52 KIT, TRANSDUCER / AFIB [id number] Used PACER [id number] CATHETER, TACTICATH ABLAT BUNDLE 06:52 BUNDLE-[employer] GELY Used 65 BUNDLE *[id number] BUNDLE [id number] CATHETER, FR7 OPTIMA SPIRAL 06:52 BUNDLE-[employer] GELY FR7 *[id number]- Used BUNDLE BUNDLE [id number] 06:52 BUNDLE-[employer] GELY CATHETER, JSN, QUAD BUNDLE FR 5 *[id number]- Used BUNDLE [id number] 06:52 BUNDLE-[employer] GELY CATHETER, JSN, QUAD BUNDLE FR 5 *[id number]- Used BUNDLE [id number] SET, COOL POINT TUBING 06:52 BUNDLE-ST. GELY *[id number]- Used BUNDLE BUNDLE SHEATH, FR8.5 STEERABLE SM 06:52 BUNDLE-ST. GELY 71CM [id number] Used 71CM BUNDLE COVER, TRANSDUCER CABLE 06:52 [employer] [id number] Used ACUNAV 06:52 CORDIS/PACER SHEATH, FR10 ORION 11CM FR 10 [id number] Used 10:00 CORDIS/PACER SHEATH, FR10 ORION 11CM FR 10 [id number] Used 06:52 CORDIS/PACER SHEATH, FR9 ORION 11CM FR 9 [id number] Used [id number] 06:52 [employer] PACK, CCL CUSTOM * Used *[id number] 06:52 [employer] PACER MURPHY, LIMB * 9100 *[id number] Used [id number] 06:52 [facility] MEDICAL SHEATH, FR4.5 PRELUDE 11CM FR 4.5 Used [id number] 06:52 NAMIC TUBING, HIGH PRESSURE 48" 48" Used *[id number] 06:52 NAMIC TUBING, HIGH PRESSURE 48" 48" Used *[id number] 06:52 FERREIRA MEDICAL BLANKET,WARM AIR CCL * Used *[id number] 06:52 [facility] MEDICAL ELECTRODE KIT, MEERA X SURFACE * [id number] Used [id number] 06:52 [facility] MEDICAL SHEATH, EPS, FR6 FAST CATH FR 6 Used *[id number] 06:52 [facility] MEDICAL SHEATH, EPS, FR7 FAST CATH FR 7 [id number] Used [id number] 06:52 [facility] MEDICAL SHEATH, EPS, FR8 FAST CATH FR 8 Used *[id number] CATHETER, ACUNAV FR10 ICE [id number] 08:02 OREN FR 10 Used (OREN) *[id number] [facility] PAD, ELECTROSURGICAL 06:52 * [id number] *[id number] Used SURGICAL GROUNDING (BLUE) History: Allergies Allergy Reaction latex rash History: Risk Factors Dyslipidemia Yes Prior CABG Yes Labs Hgb (g/dl) Hct (%) WBC (l/cumm) Platelets (thousands) 11.60-17.00 35.00-51.00 4.00-11.00 150.00-450.00 13.0 39 4.4 157 Glucose (mg/dl) BUN (mg/dl) Creatinine (mg/dl) BUN:Creatinine (1:x) 74.00-106.00 7.00-18.00 0.50-1.30 10.00-20.00 91 11 1.0 11 Na (meq/l) K (meq/l) 136.00-145.00 3.50-5.10 139 3.7 INR (PTT:PT) 0.90-1.10 1 CPK-MB (ng/ML) 0.50-3.60 Not Drawn Medication Medication Total Dose (Bolus/Oral) Medication Total Dosage/Unit 1% XYLOCAINE 40 mL PROTAMINE 50 mg Medications (Bolus/Oral) Medication Time Given Dosage/Unit Administered By Reason 1% XYLOCAINE 06/10/2017 7:54:00 AM 20 mL Fiordaliza Ocampo Patient arrived on 20 mL 1% XYLOCAINE given by Fiordaliza cOampo in Left Groin via Subcutaneous. Ordered by Fiordaliza Ocampo. 1% XYLOCAINE 06/10/2017 7:58:56 AM 20 mL Fiordaliza Ocampo Patient arrived on 20 mL 1% XYLOCAINE given by Fiordaliza Ocampo in Right Groin via Subcutaneous. Ordered by Fiordaliza Ocampo. PROTAMINE 06/10/2017 10:00:00 AM 40 mg Anesthesia, MANAGER DELI As per physicians verb al order 40 mg PROTAMINE given in lab by Anesthesia, MANAGER DELI via Peripheral IV. Ordered by iFordaliza Ocampo. Reason: As per physicians verbal order. PROTAMINE 06/10/2017 10:10:41 AM 10 mg Anesthesia, MANAGER DELI As per physicians verb al order 10 mg PROTAMINE given in lab by Anesthesia, MANAGER DELI via Peripheral IV. Ordered by Fiordaliza Ocampo. Reason: As per physicians verbal order. Medication (Drip) Medication Time Given Dosage/Unit Concentration/Unit Diluent (ml) Solution HEPARIN DRIP 06/10/2017 7:01:34 AM 800 units/hr 62661 units 250 D5W Patient arrived on 800 units/hr HEPARIN DRIP in Left Forearm via Peripheral IV. Pump/Drip Flow = 8 ml /hr using D5[place] [address] units in 250 ml. ISUPREL 06/10/2017 9:46:29 AM 10 mcg/min 1 mg 250 NaCl .9 10 mcg/min ISUPREL given by Anesthesia, MANAGER DELI via Peripheral IV. Pump/Drip Flow = 150 ml/hr using NaCl .9 with a concentration of 1 mg in 250 ml. Ordered by Fiordaliza Ocampo. LEVAQUIN 06/10/2017 7:52:28 AM 100 mL/hr 500 100 NaCl .9 Patient arrived on 100 mL/hr LEVAQUIN given by Anesthesia, MANAGER DELI via Peripheral IV. Pump/Drip Flow = 0 ml/hr using NaCl .9 with a concentration of 500 in 100 ml. Ordered by Fiordaliza Ocampo. Reason: As per physicians verbal order. for leila Initial Case Assessment Cardiovascular HR NIBP Chest Pain 95 131/81 0 Edema Present Skin color Skin None Normal Warm Dry Circulatory - Right Pulses Dorsalis Pedis 1 Scale (0,1,2,3,4,d) Circulatory - Left Pulses Dorsalis Pedis 1 Scale (0,1,2,3,4,d) Neurological State Oriented to time-place- Alert Moves all extremities person Respiration - General Respiration Rate SpO2 (%) (B/min) 15 96 Final Case Assessment Cardiovascular HR Rhythm NIBP Chest Pain 63 sr 100/61 0 Edema Present Skin color Skin None Normal Warm Dry Circulatory - Right Pulses Dorsalis Pedis 1 Scale (0,1,2,3,4,d) Circulatory - Left Pulses Dorsalis Pedis 1 Scale (0,1,2,3,4,d) Circulatory - Lower Extremities Color Lower Right Color Lower Left Normal Normal Neurological State Drowsy Respiration - General Respiration Rate SpO2 (%) (B/min) 16 100 Respiration - Ventilator Type Intubation Type ET(oral) Chronological Log Time Study Chronological Log 7:00:38 Patient arrived via Bed. 7:00:39 Patient Name, D.O.B, / Armband Verified By R.N. 7:00:39 Consent signed by the physician and the patient and verified by the Roll Machine Operator staff. 7:00:40 Pre-op and post- op instructions given; patient acknowledges understanding of instructions. 7:00:45 Verbal Stimulation=2 Physical Stimulation=2 Airway=2 Respiration=2 TOTAL=8. (0=absent, 1=li mited, 2=present) 7:00:58 Anesthesia at bedside. Assumes care of patient. 7:01:02 Patient has been NPO for More than 6Hrs. 7:01:03 Skin Breakdown-right anterior calf w 2 bandaids, generalized bruising 7:01:27 Patient Warmer Placed on the Table. 7:01:28 Disposable Defibrillator Pads Placed On Patient. 7:01:29 Jyotsna Prominences Protected 7:01:31 A # 20 IV was noted in the Forearm (left). Grade = 0 7:01:31 A # 20 IV was noted in the Antecubital (right). Grade = 0 7:01:33 A # 20 IV was noted in the Antecubital (left). Grade = 0 Patient arrived on 800 units/hr HEPARIN DRIP in Left Forearm via Peripheral IV. Pump/Drip Flow = 8 ml/hr using D5W 7:01:34 [place] [address] units in 250 ml. 7:01:37 History and physical on the chart or being dictated. 7:11:32 Table restraints applied according to hospital policy Assessment: Initial Case, HR=95 BPM, EZJK=268/81 mmhg, Chest Pain=0, Edema=None, Color=Normal, S kin = Warm, Dry Right Pulses: Tay Ped=1 7:24:17 Left Pulses: Tay Ped=1 Neurological: State=Alert, Ox3, AUGUSTE Respiration: Resp=15 B/min, SpO2=96 % 7:25:43 Right groin prepped with 2% chlorhexidine, and with a 3 min. waiting time. 7:25:50 Left groin prepped with 2% chlorhexidine, and with a 3 min. waiting time. 7:35:28 MD paged 7:37:06 MD responded 7:45:57 MD arrived. 7:46:13 Reference ECG taken Time Out. Correct patient, procedure, procedure equipment, site and side verified with physician present. Time 7:51:01 concurred by MD, individual staff and MANAGER DELI. Time Out #2 - Consents verified, patient in correct position, all results are labled and display ed, safety precautions 7:51:19 taken, antibiotics administered. Time out concurred by MD, individual staff and MANAGER DELI in procedur e 7:51:33 Case Start 7:51:53 Andres in progress Patient arrived on 100 mL/hr LEVAQUIN given by Anesthesia, MANAGER DELI via Peripheral IV. Pump/Drip [place] w = 0 ml/hr using 7:52:28 NaCl .9 with a concentration of 500 in 100 ml. Ordered by Fiordaliza Ocampo. Reason: As per phys icians verbal order. for leila 7:53:53 Andres complete Patient arrived on 20 mL 1% XYLOCAINE given by Fiordaliza Ocampo in Left Groin via Subcutaneous. Ord ered by Damaris, 7:54:00 Fiordaliza. 7:54:28 Vascular access was obtained in the Fem Vein (left). 7:54:31 Vascular access was obtained in the Fem Vein (left). 7:54:45 Vascular access was obtained in the Fem Vein (left). 7:54:48 Vascular access was obtained in the Fem Art (left). A SHEATH, FR4.5 PRELUDE 11CM FR 4.5 was advanced into the Fem Art (left) using the Percutaneous technique. 7:54:59 0.9ns pressure bag connected. 7:55:51 A SHEATH, EPS, FR6 FAST CATH FR 6 was advanced into the Fem Vein (left) using the Percutaneo us technique. 7:55:59 A SHEATH, EPS, FR7 FAST CATH FR 7 was advanced into the Fem Vein (left) using the Percutaneo us technique. 7:56:03 A SHEATH, FR10 ORION 11CM FR 10 was advanced into the Fem Vein (left) using the Percutaneou s technique. Patient arrived on 20 mL 1% XYLOCAINE given by Fiordaliza Ocampo in Right Groin via Subcutaneous. Or dered by Damaris, 7:58:56 Fiordaliza. 7:59:07 Vascular access was obtained in the Fem Vein (right). 7:59:12 A SHEATH, EPS, FR8 FAST CATH FR 8 was advanced into the Fem Art (right) using the Percutaneo us technique. A SHEATH, FR8.5 STEERABLE SM 71CM BUNDLE 71CM was exchanged in the Fem Vein (right). This was ne cessary in 7:59:38 order for catheter support. 8:00:00 CATHETER, ACUNAV FR10 ICE ([email or web address]) FR 10 Was Postioned. A CATHETER, JSN, QUAD BUNDLE FR 5 was advanced vis Fem Vein (left) and placed in the CS. Placeme nt was visually 8:01:18 confirmed under fluoroscopy. A CATHETER, JSN, QUAD BUNDLE FR 5 was advanced vis Fem Vein (left) and placed in the HIS. Place ment was 8:01:37 visually confirmed under fluoroscopy. A CATHETER, JSN, QUAD BUNDLE FR 5 was advanced vis Fem Vein (left) and placed in the HIS. Place ment was 8:01:44 visually confirmed under fluoroscopy. 8:04:58 EPS in progress 8:06:59 [place] in 8:10:13 Activated Clotting Time Drawn 8:10:19 A eps was advanced to the right atrium and passed through the septal wall to the left atrium . 8:10:27 [place] out 8:12:40 ACT (Normal Range 90-180) = 167 A CATHETER, FR7 OPTIMA SPIRAL BUNDLE FR7 was advanced vis Fem Vein (left) and placed in the LA. Placement 8:12:55 was visually confirmed under fluoroscopy. 8:19:27 Catheter was removed 8:21:30 Activated Clotting Time Drawn A CATHETER, TACTICATH ABLAT 65 BUNDLE was advanced vis Fem Vein (right) and placed in the LA. P lacement was 8:23:06 visually confirmed under fluoroscopy. 8:27:22 RF Ablation of the LT. ATRIUM with a CATHETER, TACTICATH ABLAT 65 BUNDLE. 8:30:52 ACT (Normal Range 90-180) = 288 8:37:02 Activated Clotting Time Drawn 8:44:26 ACT (Normal Range 90-180) = 303 8:53:29 Activated Clotting Time Drawn 8:58:02 ACT (Normal Range 90-180) = 318 9:06:00 Activated Clotting Time Drawn 9:12:09 ACT (Normal Range 90-180) = 378 9:17:38 RF Ablation of the LT. ATRIUM with a CATHETER, TACTICATH ABLAT 65 BUNDLE. Continues 9:42:47 RF Ablation of the Coronary Sinus with a CATHETER, TACTICATH ABLAT 65 BUNDLE. 9:44:17 ECG rhythm of ~RHYTHMS~ noted. Patient cardioverted at 200 joules. Success. AT 10 mcg/min ISUPREL given by Anesthesia, MANAGER DELI via Peripheral IV. Pump/Drip Flow = 150 ml/hr usin g NaCl .9 with a 9:46:29 concentration of 1 mg in 250 ml. Ordered by Fiordaliza Ocampo. 9:55:00 Isuprel off A SHEATH, FR9 ORION 11CM FR 9 was exchanged in the Fem Vein (right). This was necessary in ord er to achieve 9:55:28 vascular hemostasis. 40 mg PROTAMINE given in lab by Anesthesia, MANAGER DELI via Peripheral IV. Ordered by Fiordaliza Ocampo. Bailey garces: As per 10:00:00 physicians verbal order. 10:00:25 Catheter(s) removed without difficulty 10:08:04 Activated Clotting Time Drawn 10:09:31 Ablation procedure performed: AFIB. 10:09:39 EP Procedure was performed. 10:10:00 ACT (Normal Range 90-180) = 190 10 mg PROTAMINE given in lab by Anesthesia, MANAGER DELI via Peripheral IV. Ordered by Hanscy. Bailey Ocampo: As per 10:10:41 physicians verbal order. 10:16:30 Activated Clotting Time Drawn 10:18:09 ACT (Normal Range 90-180) = 159 10:19:17 Sheaths removed; pressure applied to access sites. 10:35:55 PACU called. Spoke to Dwain 10:36:08 Bedside Report will be given. 10:42:20 Case End 10:42:31 No case complications noted. 10:42:32 Cine recording checked. 10:45:48 Defibrillator and ground pads removed. Skin intact. Assessment: Final Case, HR=63 BPM, Rhythm=sr, XHVN=774/61 mmhg, Chest Pain=0, Edema=None, [place] r=Normal, Skin = Warm, Dry Right Pulses: Tay Ped=1 Left Pulses: Tay Ped=1 10:47:25 Lower Right Extremities: Color=Normal Lower Left Extremities: Color=Normal Neurological: State=Drowsy Respiration: Resp=16 B/min, KwV1=801 %, Type=ET(Oral) 10:53:02 Sterile dressings applied to sites 11:00:00 Patient moved to stretcher End Study - Contrast Media Used In Study Contrast Total Opened (mL) Total Used (mL) Total Wasted (mL) Unspecified 0 0 0 End Study - Maximum Contrast Load Max Contrast Load (mL) 367.5 End Study - Radiation Exposure Fluoro Time (minutes) 3.9 End Study - Patient Disposition Complications Transferred To Interventional Outcome No Telemetry Bed successful
== END 2017-06-11 15:40 | disposition home or self-care (01) | DRG 274 ==
LOC: PHED 14:06 → PHEDA 15:57 → HCIS 19:24
PROVIDERS: ADMIT Hospitalist; ATTEND Hospitalist
PROC: 4A023N7 Measurement of Cardiac Sampling and Pressure, Left Heart, Percutaneous Approach (ICD-10-PCS; principal; 2017-06-07)
PROC: B2111ZZ Fluoroscopy of Multiple Coronary Arteries using Low Osmolar Contrast (ICD-10-PCS; 2017-06-07)
PROC: B2131ZZ Fluoroscopy of Multiple Coronary Artery Bypass Grafts using Low Osmolar Contrast (ICD-10-PCS; 2017-06-07)
PROC: B2181ZZ Fluoroscopy of Left Internal Mammary Bypass Graft using Low Osmolar Contrast (ICD-10-PCS; 2017-06-07)
PROC: B2151ZZ Fluoroscopy of Left Heart using Low Osmolar Contrast (ICD-10-PCS; 2017-06-07)
PROC: B41F1ZZ Fluoroscopy of Right Lower Extremity Arteries using Low Osmolar Contrast (ICD-10-PCS; 2017-06-07)
PROC: 02583ZZ Destruction of Conduction Mechanism, Percutaneous Approach (ICD-10-PCS; 2017-06-10)
PROC: 4A0234Z Measurement of Cardiac Electrical Activity, Percutaneous Approach (ICD-10-PCS; 2017-06-10)
PROC: 02K83ZZ Map Conduction Mechanism, Percutaneous Approach (ICD-10-PCS; 2017-06-10)
PROC: 5A2204Z Restoration of Cardiac Rhythm, Single (ICD-10-PCS; 2017-06-10)
PROC: B246ZZZ Ultrasonography of Right and Left Heart (ICD-10-PCS; 2017-06-10)
DX: I25.110 Atherosclerotic heart disease of native coronary artery with unstable angina pectoris (principal); I11.0 Hypertensive heart disease with heart failure; I48.92 Unspecified atrial flutter; I50.9 Heart failure, unspecified; I34.0 Nonrheumatic mitral (valve) insufficiency; I34.1 Nonrheumatic mitral (valve) prolapse; I48.91 Unspecified atrial fibrillation; E03.9 Hypothyroidism, unspecified; Z95.1 Presence of aortocoronary bypass graft; Z95.5 Presence of coronary angioplasty implant and graft; E78.5 Hyperlipidemia, unspecified; Z87.891 Personal history of nicotine dependence; K59.00 Constipation, unspecified; R91.1 Solitary pulmonary nodule; I25.2 Old myocardial infarction; R63.4 Abnormal weight loss; Z68.20 Body mass index [BMI] 20.0-20.9, adult; Z91.040 Latex allergy status
CPT/HCPCS: 71010; 71250; 74000; 78452; 80048; 80061; 80162; 82550; 82552; 83880; 84484; 85002; 85025; 85027; 85610; 85730; 92960; 93005; 93017; 93306; 93312; 93320; 93325; 93459; 93613; 93623; 93656; 93662; 99285; A9502; C1730; C1731; C1732; C1759; C1766; C1769; C1893; C2630; J0583; J1100; J1644; J1940; J2250; J2370; J2710; J2720; J2785; J3010; J7030; J7050; Q9967

== ENCOUNTER 2017-06-24 00:40 | Inpatient (IN) | payer MEDICARE ==
[2017-06-24] VITALS (19 sets, daily range): BP systolic 123–159; BP diastolic 55–85; PULSE 47–63; RESP 16–20; TEMP 97.5–98.2; O2SAT 96–99
[~2017-06-24] VITALS: Ht 188 cm; Wt 77.5 kg
[~2017-06-24 00:40] MED LIST changes: +AMIO200T PO; -APIX5TAB PO; +ASPI81CH25 CHEW; +ATOR40TA16 PO; -CALC-137 PO; +CALC1TAB87 PO; -CAPT50TA PO; +CART120C PO; -CO Q100C9 PO; +DIGO0.12 PO; -HYDR50TA5 PO; -ISOS30 PO; +ISOS30TA3 PO; +LEVO75TA3 PO; +METO50TA11 PO; +MULT-65 PO; +PRAD150C PO; -SYNT25TA PO; -TAB-TAB PO; -ZOCO40TA PO; -[UNRECOGNIZED DRUG - CODE] PO
--- NOTE | 2017-06-24 00:51 | PD ---
HPI Chief Complaint: S/P FALL AND CONFUSION Time Seen by Provider: 00:48 Travel History International Travel<30 days: No Contact w/Intl Traveler<30days: No Traveled to known affect area: No History of Present Illness HPI PER BROTHER HE DIDN'T SEEM HIMSELF, SEEM CONFUSED AND WHILE AMBULATING, FELL DOWN, NO LOC, 911 CALLED AND PATIENT TRANSPORTED [facility] Past Medical History Heart Rhythm Problems: Yes (A-FIB/A-FLUTTER) Cancer: No Cardiac Catheterization: Yes (stenting 1999) Cardiovascular Problems: Yes High Cholesterol: Yes Chest Pain: Yes Congestive Heart Failure: Yes Coronary Artery Disease: Yes Diabetes: No Diminished Hearing: No Endocrine: Yes Gastrointestinal Disorders: No Glaucoma: No Genitourinary: Yes Hepatitis: No Hiatal Hernia: Yes Hypertension: Yes Immune Disorder: No Inguinal Hernia: Yes (bilat) Musculoskeletal: No Neurologic: No Psychiatric: No Reproductive: No Respiratory: Yes Integumentary: No Myocardial Infarction: Yes Radiation Therapy: Yes (FOR THYROID ) Shingles: Yes (1989) Thyroid Disease: Yes Past Surgical History Abdominal Surgery: Yes (AMADO HERNIA REPAIR, HEMORRHOIDS 2X) Cardiac Surgery: Yes (3X BIPASS SURGERY 9 YRS AGO, STENT/cardiac ablation 2012) Coronary Artery Bypass Graft: Yes (2000) Ear Surgery: No Endocrine Surgery: No Eye Surgery: No Genitourinary Surgery: No Gynecologic Surgery: No Oral Surgery: No Thoracic Surgery: No Other Surgery: Yes Social History Alcohol Use: No Tobacco Use: Yes (former) Substance Use: No Allergies-Medications (Allergen,Severity, Reaction): Coded Allergies: latex (Unverified Allergy, Mild, rash, 06/05/17) Reported Meds & Prescriptions Reported Meds & Active Scripts Active Aspirin Low Strength (Aspirin) 81 Mg Chew 81 Mg CHEW DAILY Amiodarone (Amiodarone HCl) 200 Mg Tab 200 Mg PO DAILY Reported Pradaxa (Dabigatran) 150 Mg Cap 150 Mg PO BID Nitrostat SL (Nitroglycerin) 0.4 Mg Subl 0.4 Mg SL DIRECTED PRN 1 tablet under the tongue as needed for chest pain. Repeat every 5 minutes for a total of 3 DOSES or call 911 if NO relief. Metoprolol Succinate ER 24 HR (Metoprolol Succinate) 50 Mg Tab 1.5 Tab PO HS Isosorbide Mononitrate ER (Isosorbide Mononitrate) 30 Mg Lew 30 Mg PO DAILY Digoxin 0.125 Mg Tab 0.125 Mg PO DAILY Multi-Vitamin Daily (Multiple Vitamin) 1 Tab Tab 1 Tab PO DAILY Cartia Xt (Diltiazem ER 24 HR) 120 Mg Caper 240 Mg PO DAILY Calcium 600 with Vitamin D (Calcium Carbonate-Cholecalciferol) 600-400 mg-Unit Tab 1 Tab PO DAILY Atorvastatin (Atorvastatin Calcium) 40 Mg Tab 40 Mg PO HS Review of Systems ROS Limitations: Other: (CONFUSED, NOT HIS NORMAL) Except as stated in HPI: all other systems reviewed are Neg General / Constitutional: Positive: Other (GENERALIZED WEAKNESS) Genitourinary: Positive: Other (INDWELLING STEPHENSON) Physical Exam Narrative GENERAL: SKIN: Warm and dry. HEAD: Atraumatic. Normocephalic. EYES: Pupils equal and round. No scleral icterus. No injection or drainage. ENT: No nasal bleeding or discharge. Mucous membranes pink and moist. NECK: Trachea midline. No JVD. CARDIOVASCULAR: Regular rate and rhythm. RESPIRATORY: No accessory muscle use. Clear to auscultation. Breath sounds equal bilaterally. GASTROINTESTINAL: Abdomen soft, non-tender, nondistended. INDWELLING STEPHENSON WITH CLOUDY URINE MUSCULOSKELETAL: Extremities without clubbing, cyanosis, or edema. No obvious deformities. NEUROLOGICAL: Awake AND PLEASANTLY CONFUSED. No obvious cranial nerve deficits. Motor grossly within normal limits. Five out of 5 muscle strength in the arms BUT 4/5 ON BILATERAL LE legs. Normal speech. PSYCHIATRIC: Appropriate mood and affect; insight and judgment normal. Data Data Last Documented VS Vital Signs Date Time Temp Pulse Resp B/P (MAP) Pulse Ox O2 Delivery O2 Flow Rate FiO2 06/24/17 01:10 52 18 136/55 (82) 98 Room Air 06/24/17 00:48 97.5 Orders Orders Electrocardiogram (06/24/17 00:51) Ammonia (06/24/17 00:51) Complete Blood Count With Diff (06/24/17 00:51) Comprehensive Metabolic Panel (06/24/17 00:51) Prothrombin Time / Inr (Pt) (06/24/17 00:51) Act Partial Throm Time (Ptt) (06/24/17 00:51) Troponin I (06/24/17 00:51) Thyroid Stimulating Hormone (06/24/17 00:51) Urinalysis - C+S If Indicated (06/24/17 00:51) Lactic Acid Sepsis Protocol (06/24/17 00:51) Chest, Single Ap (06/24/17 00:51) Ct Brain W/O Iv Contrast(Rout) (06/24/17 00:51) Blood Glucose (06/24/17 00:51) Ecg Monitoring (06/24/17 00:51) Iv Access Insert/Monitor (06/24/17 00:51) Oximetry (06/24/17 00:51) Sodium Chloride 0.9% Flush (Ns Flush) (06/24/17 01:00) Sodium Chlorid 0.9% 500 Ml Inj (Ns 500 M (06/24/17 02:00) Ceftriaxone Inj (Rocephin Inj) (06/24/17 02:00) Sodium Chlorid 0.9% 500 Ml Inj (Ns 500 M (06/24/17 02:30) Admit Order (Ed Use Only) (06/24/17 02:26) Labs Laboratory Tests Test 06/24/17 01:00 White Blood Count 15.9 TH/MM3 Red Blood Count 4.54 MIL/MM3 Hemoglobin 13.9 GM/DL Hematocrit 40.7 % Mean Corpuscular Volume 89.7 FL Mean Corpuscular Hemoglobin 30.6 PG Mean Corpuscular Hemoglobin Concent 34.1 % Red Cell Distribution Width 15.0 % Platelet Count 259 TH/MM3 Mean Platelet Volume 7.0 FL Neutrophils (%) (Auto) 90.3 % Lymphocytes (%) (Auto) 5.6 % Monocytes (%) (Auto) 3.6 % Eosinophils (%) (Auto) 0.3 % Basophils (%) (Auto) 0.2 % Neutrophils # (Auto) 14.4 TH/MM3 Lymphocytes # (Auto) 0.9 TH/MM3 Monocytes # (Auto) 0.6 TH/MM3 Eosinophils # (Auto) 0.0 TH/MM3 Basophils # (Auto) 0.0 TH/MM3 CBC Comment DIFF FINAL Differential Comment Prothrombin Time 14.2 SEC Prothromb Time International Ratio 1.3 RATIO Activated Partial Thromboplast Time 35.6 SEC Blood Urea Nitrogen 20 MG/DL Creatinine 1.33 MG/DL Random Glucose 166 MG/DL Total Protein 7.0 GM/DL Albumin 3.7 GM/DL Calcium Level 9.2 MG/DL Alkaline Phosphatase 79 U/L Aspartate Amino Transf (AST/SGOT) 19 U/L Alanine Aminotransferase (ALT/SGPT) 26 U/L Total Bilirubin 1.1 MG/DL Sodium Level 133 MEQ/L Potassium Level 4.1 MEQ/L Chloride Level 98 MEQ/L Carbon Dioxide Level 24.2 MEQ/L Anion Gap 11 MEQ/L Estimat Glomerular Filtration Rate 52 ML/MIN Lactic Acid Level 4.1 mmol/L Ammonia 15 MCMOL/L Troponin I LESS THAN 0.02 NG/ML Thyroid Stimulating Hormone 3rd Gen 12.100 uIU/ML MDM Medical Decision Making Medical Screen Exam Complete: Yes Emergency Medical Condition: Yes Medical Record Reviewed: Yes Interpretation(s) AFIB WITH CVR AROUND 50'S, NO STEMI PATTERN Differential Diagnosis AMS (ICH V UTI V PNA V ELECTROLYTE ABNL Narrative Course DURING EVALUAITON PATIENT WAS FOUND TO HAVE E/O LACTIC ACIDOSIS, ALONG WITH UTI FROM HIS INDWELLING CATHETER. PATIENT ALSO WAS FOUND TO HAVE HYPOTHYROIDISM BASED ON SCREENING TSH... INDIVIDUALLY AND DEFINITELY IN AGGREGRATE CAN CAUSE AMS. Diagnosis Primary Impression: AMS Additional Impressions: UROSEPSIS Lactic acidosis HYPOTHYROIDISM Admitting Information Admitting Physician Requests: Observation Ko Dimas MD Jun 24, 2017 00:51
[2017-06-24] MEDS ORDERED: SODIUM CHLORIDE 0.9% FLUSH 5 ML FLUSH IV FLUSH PRN (01:00)
[2017-06-24 01:20] LABS: AUTOMATED NEUTROPHIL # 14.4 TH/MM3 (1.8-7.7); BASOPHIL % 0.2 % (0.0-2.0); EOSINOPHIL % 0.3 % (0.0-4.0); HEMATOCRIT 40.7 % (39.0-51.0); HEMO FLAGS DIFF FINAL; LYMPH % 5.6 % (9.0-44.0); LYMPHOCYTE # 0.9 TH/MM3 (1.0-4.8); MEAN CELL VOLUME 89.7 FL (80.0-100.0); MEAN CORPUSCULAR HEMOGLOBIN 30.6 PG (27.0-34.0); MEAN CORPUSCULAR HGB CONC 34.1 % (32.0-36.0); MONO % 3.6 % (0.0-8.0); NEUT % 90.3 % (16.0-70.0); PLATELET COUNT 259 TH/MM3 (150-450); RED BLOOD COUNT 4.54 MIL/MM3 (4.50-5.90); WHITE BLOOD COUNT 15.9 TH/MM3 (4.0-11.0)
[2017-06-24 01:25] LABS: APTT (PATIENT) 35.6 SEC (24.3-30.1); INTERNATIONAL NORMALIZED RATIO 1.3 RATIO; PROTHROMBIN TIME - PATIENT 14.2 SEC (9.8-11.6)
[2017-06-24 01:30] LABS: ALT (GPT) 26 U/L (12-78); ANION GAP 11 MEQ/L (5-15); AST (GOT) 19 U/L (15-37); BICARBONATE 24.2 MEQ/L (21.0-32.0); BLOOD UREA NITROGEN 20 MG/DL (7-18); CHLORIDE 98 MEQ/L (98-107); GLOMERULAR FILTRATION RATE 52 ML/MIN (>89); POTASSIUM 4.1 MEQ/L (3.5-5.1); SODIUM (NA) 133 MEQ/L (136-145)
--- NOTE | 2017-06-24 01:43 | RADRPT ---
EXAM DATE/TIME: 06/24/2017 01:30 [facility] COMPARISON: No previous studies available for comparison. INDICATIONS : Altered mental status. RADIATION DOSE: 34.21 CTDIvol (mGy) MEDICAL HISTORY : Cardiovascular disease. Hypertension. SURGICAL HISTORY : None. ENCOUNTER: Initial ACUITY: 1 day PAIN SCALE: 0/10 LOCATION: cranial TECHNIQUE: Multiple contiguous axial images were obtained of the head. Using automated exposure control and adj ustment of the mA and/or kV according to patient size, radiation dose was kept as low as reasonably a chievable to obtain optimal diagnostic quality images. DICOM format image data is available electro nically for review and comparison. FINDINGS: The exam is degraded by motion artifacts. No mass, hemorrhage or shift. No hydrocephalus. No acute brendan ny abnormalities. CONCLUSION: 1. No acute findings. Exam degraded by motion. Crow Reed MD on June 24, 2017 at 1:39 Board Certified Radiologist. This report was verified electronically.
[2017-06-24 01:49] LABS: ALKALINE PHOSPHATASE 79 U/L (45-117); TOTAL BILIRUBIN ADULT 1.1 MG/DL (0.2-1.0)
--- NOTE | 2017-06-24 01:56 | RADRPT ---
EXAM DATE/TIME: 06/24/2017 01:21 [facility] COMPARISON: CHEST SINGLE AP, June 05, 2017, 15:27. INDICATIONS : Short of breath. MEDICAL HISTORY : Hypertension. Congestive heart failure. Myocardial infarction. SURGICAL HISTORY : CABG. ENCOUNTER: Initial ACUITY: 1 day PAIN SCORE: 0/10 LOCATION: Bilateral chest FINDINGS: A single view of the chest demonstrates cardiomegaly. Mild basilar atelectasis. Scarring at the left costophrenic angle. Postoperative CABG. No pneumothorax. CONCLUSION: 1. Cardiomegaly with minimal basilar atelectasis. Stable left basilar scarring. Findings similar to S eptember 9. Crow Reed MD on June 24, 2017 at 1:52 Board Certified Radiologist. This report was verified electronically.
[2017-06-24] MEDS ORDERED: SODIUM CHLORID 0.9% 500 ML INJ 500 ML IV ONE ×2 (02:00→02:30)
[2017-06-24] MEDS ORDERED: cefTRIAXone INJ 2,000 MG in SODIUM CHLORIDE 0.9% INJ 100 ML IV ONE (02:00)
[2017-06-24 03:10] LABS: LACTIC ACID GHOST NOT REPORTABLE
[2017-06-24 03:27] LABS: BACTERIA, URINE RARE /hpf; BLOOD, URINE MOD (NEG); GLUCOSE,URINE NEG (NEG); HYALINE CAST, URINE 5 /lpf (RARE); KETONE, URINE NEG (NEG); MUCUS URINE FEW /lpf (OCC); NITRITE,URINE NEG (NEG)
[2017-06-24 03:29] LABS: COMMENT (UR) CATH-CULTURE IND; CULTURE IF INDICATED CATH CULTURE IND; URINE COLOR LIGHT-RED (YELLW/STRAW)
[2017-06-24] MEDS ORDERED: NITROGLYCERIN 0.4 MG SL 25 TABS/BTL SL PRN (07:15)
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
[2017-06-24] MEDS: DILTIAZEM-CD 240 MG CAP ER PO SCH (09:19)
[2017-06-24] MEDS: MULTIVITAMIN TAB PO SCH (09:19)
[2017-06-24] MEDS: ASPIRIN 81 MG CHEW TAB CHEW SCH (09:19)
[2017-06-24] MEDS: DABIGATRAN ETEXILATE 150 MG CAP PO SCH ×2 (09:19→19:35)
[2017-06-24] MEDS: AMIODARONE 200 MG TAB PO SCH (09:19)
[2017-06-24] MEDS: DIGOXIN 0.125 MG TAB PO SCH (09:19)
[2017-06-24] MEDS: ISOSORBIDE MONONITRATE 30 MG TAB PO SCH (09:36)
[2017-06-24] MEDS: LEVOTHYROXINE SODIUM 88 MCG TAB PO SCH (09:37)
[2017-06-24] MEDS: SODIUM CHLOR 0.9% 1000 ML INJ 1,000 ML IV SCH ×2 (09:38→18:55)
[2017-06-24 14:57] LABS: POTASSIUM 5.2 MEQ/L (3.5-5.1)
[2017-06-24] MEDS ORDERED: cefTRIAXone INJ 1,000 MG in SODIUM CHLORIDE 0.9% INJ 100 ML IV SCH (15:00)
--- NOTE | 2017-06-24 17:08 | EKG ---
Date Performed: 06/24/2017 Time Performed: 01:23:29 PTAGE: 77 years EKG: UNCERTAIN REGULAR RHYTHM INTRAVENTRICULAR CONDUCTION DELAY ABNORMAL ECG Since PREVIOUS TRACING , no significant change noted PREVIOUS TRACIN06/24/2017 01.22 DOCTOR: Deborah Thorne Interpretating Date/Time 06/24/2017 17:07:48
[2017-06-24] MEDS: ATORVASTATIN 40 MG TAB PO SCH (19:35)
[2017-06-24] MEDS: METOPROLOL SUCCINATE 50 MG EXTENDED RELEASE TAB PO SCH (19:35)
[2017-06-24] MEDS: cefTRIAXone INJ 1,000 MG in SODIUM CHLORIDE 0.9% INJ 100 ML IV SCH (19:36)
[2017-06-25] VITALS (26 sets, daily range): BP systolic 119–148; BP diastolic 60–83; PULSE 43–59; RESP 16–18; TEMP 97.5–98.6; O2SAT 94–98
[2017-06-25] MEDS: ISOSORBIDE MONONITRATE 30 MG TAB PO SCH (05:56)
[2017-06-25] MEDS: LEVOTHYROXINE SODIUM 88 MCG TAB PO SCH (05:56)
[2017-06-25] MEDS: SODIUM CHLOR 0.9% 1000 ML INJ 1,000 ML IV SCH (05:58)
[2017-06-25 07:39] LABS: AUTOMATED NEUTROPHIL # 7.5 TH/MM3 (1.8-7.7); BASOPHIL % 0.2 % (0.0-2.0); EOSINOPHIL % 0.2 % (0.0-4.0); HEMATOCRIT 37.1 % (39.0-51.0); HEMO FLAGS DIFF FINAL; LYMPH % 10.3 % (9.0-44.0); LYMPHOCYTE # 0.9 TH/MM3 (1.0-4.8); MEAN CELL VOLUME 89.6 FL (80.0-100.0); MEAN CORPUSCULAR HEMOGLOBIN 30.3 PG (27.0-34.0); MEAN CORPUSCULAR HGB CONC 33.8 % (32.0-36.0); MONO % 7.4 % (0.0-8.0); NEUT % 81.9 % (16.0-70.0); PLATELET COUNT 250 TH/MM3 (150-450); RED BLOOD COUNT 4.15 MIL/MM3 (4.50-5.90); RED CELL DISTRIBUTION WIDTH 15.3 % (11.6-17.2); WHITE BLOOD COUNT 9.2 TH/MM3 (4.0-11.0)
[2017-06-25 08:39] LABS: BICARBONATE 28.4 MEQ/L (21.0-32.0)
[2017-06-25] MEDS: ASPIRIN 81 MG CHEW TAB CHEW SCH (08:46)
[2017-06-25] MEDS: DABIGATRAN ETEXILATE 150 MG CAP PO SCH ×2 (08:46→20:54)
[2017-06-25] MEDS: DILTIAZEM-CD 240 MG CAP ER PO SCH (08:46)
[2017-06-25] MEDS: MULTIVITAMIN TAB PO SCH (08:46)
--- NOTE | 2017-06-25 10:38 | HHI.PR ---
Subjective Remarks Patient awake and alert today offers no specific complaints at this time Objective Vitals Vital Signs Date Time Temp Pulse Resp B/P (MAP) Pulse Ox O2 Delivery O2 Flow Rate FiO2 06/25/17 06:01 52 06/25/17 05:09 49 06/25/17 04:08 48 06/25/17 03:23 44 06/25/17 03:00 98.0 50 17 136/68 (90) 96 06/25/17 02:36 43 06/25/17 01:44 45 06/25/17 00:41 56 06/24/17 23:30 47 06/24/17 23:00 97.6 49 16 141/84 (103) 98 06/24/17 22:00 50 06/24/17 21:32 52 06/24/17 20:00 52 06/24/17 19:00 47 06/24/17 19:00 98.2 48 16 123/67 (85) 98 06/24/17 18:21 63 06/24/17 17:20 56 06/24/17 16:07 51 06/24/17 15:44 52 06/24/17 15:44 97.8 52 18 142/77 (98) 96 06/24/17 14:00 52 06/24/17 13:00 56 06/24/17 12:00 52 06/24/17 11:00 97.9 56 20 149/83 (105) 98 06/24/17 11:00 55 Result Diagram: 06/25/17 0638 06/25/17 0638 Other Results Laboratory Tests Test 06/24/17 01:00 06/24/17 03:00 06/24/17 03:07 06/24/17 14:30 White Blood Count 15.9 TH/MM3 Red Blood Count 4.54 MIL/MM3 Hemoglobin 13.9 GM/DL Hematocrit 40.7 % Mean Corpuscular Volume 89.7 FL Mean Corpuscular Hemoglobin 30.6 PG Mean Corpuscular Hemoglobin Concent 34.1 % Red Cell Distribution Width 15.0 % Platelet Count 259 TH/MM3 Mean Platelet Volume 7.0 FL Neutrophils (%) (Auto) 90.3 % Lymphocytes (%) (Auto) 5.6 % Monocytes (%) (Auto) 3.6 % Eosinophils (%) (Auto) 0.3 % Basophils (%) (Auto) 0.2 % Neutrophils # (Auto) 14.4 TH/MM3 Lymphocytes # (Auto) 0.9 TH/MM3 Monocytes # (Auto) 0.6 TH/MM3 Eosinophils # (Auto) 0.0 TH/MM3 Basophils # (Auto) 0.0 TH/MM3 CBC Comment DIFF FINAL Differential Comment Prothrombin Time 14.2 SEC Prothromb Time International Ratio 1.3 RATIO Activated Partial Thromboplast Time 35.6 SEC Blood Urea Nitrogen 20 MG/DL 16 MG/DL Creatinine 1.33 MG/DL 1.04 MG/DL Random Glucose 166 MG/DL 76 MG/DL Total Protein 7.0 GM/DL Albumin 3.7 GM/DL Calcium Level 9.2 MG/DL 9.4 MG/DL Alkaline Phosphatase 79 U/L Aspartate Amino Transf (AST/SGOT) 19 U/L Alanine Aminotransferase (ALT/SGPT) 26 U/L Total Bilirubin 1.1 MG/DL Sodium Level 133 MEQ/L 136 MEQ/L Potassium Level 4.1 MEQ/L 5.2 MEQ/L Chloride Level 98 MEQ/L 102 MEQ/L Carbon Dioxide Level 24.2 MEQ/L 30.0 MEQ/L Anion Gap 11 MEQ/L 4 MEQ/L Estimat Glomerular Filtration Rate 52 ML/MIN 70 ML/MIN Lactic Acid Level 4.1 mmol/L 1.1 mmol/L Ammonia 15 MCMOL/L Troponin I LESS THAN 0.02 NG/ML Thyroid Stimulating Hormone 3rd Gen 12.100 uIU/ML Urine Color LIGHT-RED Urine Turbidity HAZY Urine pH 6.0 Urine Specific [place] 1.024 Urine Protein 30 mg/dL Urine Glucose (UA) NEG mg/dL Urine Ketones NEG mg/dL Urine Occult Blood MOD Urine Nitrite NEG Urine Bilirubin NEG Urine Urobilinogen 2.0 MG/DL Urine Leukocyte Esterase LARGE Urine RBC /hpf Urine WBC 169 /hpf Urine Bacteria RARE /hpf Urine Hyaline Casts 5 /lpf Urine Mucus FEW /lpf Microscopic Urinalysis Comment CATH-CULTURE IND Test 06/25/17 06:38 White Blood Count 9.2 TH/MM3 Red Blood Count 4.15 MIL/MM3 Hemoglobin 12.6 GM/DL Hematocrit 37.1 % Mean Corpuscular Volume 89.6 FL Mean Corpuscular Hemoglobin 30.3 PG Mean Corpuscular Hemoglobin Concent 33.8 % Red Cell Distribution Width 15.3 % Platelet Count 250 TH/MM3 Mean Platelet Volume 6.9 FL Neutrophils (%) (Auto) 81.9 % Lymphocytes (%) (Auto) 10.3 % Monocytes (%) (Auto) 7.4 % Eosinophils (%) (Auto) 0.2 % Basophils (%) (Auto) 0.2 % Neutrophils # (Auto) 7.5 TH/MM3 Lymphocytes # (Auto) 0.9 TH/MM3 Monocytes # (Auto) 0.7 TH/MM3 Eosinophils # (Auto) 0.0 TH/MM3 Basophils # (Auto) 0.0 TH/MM3 CBC Comment DIFF FINAL Differential Comment Blood Urea Nitrogen 13 MG/DL Creatinine 0.99 MG/DL Random Glucose 63 MG/DL Calcium Level 8.8 MG/DL Sodium Level 137 MEQ/L Potassium Level 4.0 MEQ/L Chloride Level 102 MEQ/L Carbon Dioxide Level 28.4 MEQ/L Anion Gap 7 MEQ/L Estimat Glomerular Filtration Rate 74 ML/MIN Imaging Last Impressions Head CT 06/24/1750 Signed Impressions: Service Date/Time: May 01:30 - CONCLUSION: 1. No acute findings. Exam degraded by motion. Crow Reed MD Chest X-Ray 06/24/1750 Signed Impressions: Service Date/Time: May 01:21 - CONCLUSION: 1. Cardiomegaly with minimal basilar atelectasis. Stable left basilar scarring. Findings similar to June 05. Crow Reed MD Objective Remarks GENERAL: 77 ear old male patient in no acute distress HEART: Bradycardic LUNGS: Clear. ABDOMEN: Soft, nontender, no masses. He has a Weems catheter in place. EXTREMITIES: No edema. Pulses are palpated. No calf tenderness. NEUROLOGIC: He does move all extremities. A/P Problem List: (1) Altered mental status ICD Codes: R41.82 - Altered mental status, unspecified Plan: AMS likely secondary to metabolic encephalopathy secondary to UTI mental status improving WBC improve 15.9 on admission to 9.2 (06/25) Patient started on Rocephin IV await urine culture results recheck CBC In AM hx A Fib RVR S/P Ablation currently bradycardic HR in the 40-50's patient currently on digoxin and amiodarone and Pradaxa Will DC digoxin Hypothyroidism TSH elevated 12 Synthroid increased to 88mcg per day Patient will need repeat TSH and T4 in 6 weeks HTN controlled continue home medications anemia Hgb dropped slightly likely to dilution- no s/s of active bleeding will DC IV fluids and recheck in AM (2) UTI (urinary tract infection) ICD Codes: N39.0 - Urinary tract infection, site not specified Plan: see above (3) Hypothyroid ICD Codes: E03.9 - Hypothyroidism, unspecified Status: Chronic Plan: see above (4) Afib ICD Codes: I48.91 - Unspecified atrial fibrillation Status: Chronic Plan: see above Assessment and Plan Patient examined. Assessment and plan formulated with Lotus Adan PA-C. I agree with the above. Lotus Adan Jun 25, 2017 10:38 Bryan Koch DO Jun 26, 2017 10:04
[2017-06-25] MEDS: cefTRIAXone INJ 1,000 MG in SODIUM CHLORIDE 0.9% INJ 100 ML IV SCH (20:54)
[2017-06-25] MEDS: METOPROLOL SUCCINATE 50 MG EXTENDED RELEASE TAB PO SCH (20:54)
[2017-06-25] MEDS: ATORVASTATIN 40 MG TAB PO SCH (20:55)
[2017-06-26] VITALS (13 sets, daily range): BP systolic 117–143; BP diastolic 67–81; PULSE 52–59; RESP 16–18; TEMP 97.7–98.2; O2SAT 97–98
[2017-06-26 05:23] LABS: AUTOMATED NEUTROPHIL # 5.3 TH/MM3 (1.8-7.7); BASOPHIL % 0.4 % (0.0-2.0); EOSINOPHIL # 0.1 TH/MM3 (0-0.4); EOSINOPHIL % 1.6 % (0.0-4.0); HEMATOCRIT 39.4 % (39.0-51.0); HEMO FLAGS DIFF FINAL; LYMPH % 19.1 % (9.0-44.0); LYMPHOCYTE # 1.5 TH/MM3 (1.0-4.8); MEAN CELL VOLUME 90.2 FL (80.0-100.0); MEAN CORPUSCULAR HEMOGLOBIN 30.7 PG (27.0-34.0); MONO % 10.3 % (0.0-8.0); NEUT % 68.6 % (16.0-70.0); PLATELET COUNT 242 TH/MM3 (150-450); RED BLOOD COUNT 4.36 MIL/MM3 (4.50-5.90); RED CELL DISTRIBUTION WIDTH 15.2 % (11.6-17.2); WHITE BLOOD COUNT 7.7 TH/MM3 (4.0-11.0)
[2017-06-26] MEDS: ISOSORBIDE MONONITRATE 30 MG TAB PO SCH (06:05)
[2017-06-26] MEDS: LEVOTHYROXINE SODIUM 88 MCG TAB PO SCH (06:05)
[2017-06-26] MEDS ORDERED: SYNT88TA PO (07:45)
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
[2017-06-26] MEDS: MULTIVITAMIN TAB PO SCH (07:59)
[2017-06-26] MEDS: DABIGATRAN ETEXILATE 150 MG CAP PO SCH (08:00)
[2017-06-26] MEDS: AMIODARONE 200 MG TAB PO SCH (08:00)
[2017-06-26] MEDS: DILTIAZEM-CD 240 MG CAP ER PO SCH (08:00)
[2017-06-26] MEDS: ASPIRIN 81 MG CHEW TAB CHEW SCH (08:00)
[2017-06-26] MEDS: DIGOXIN 0.125 MG TAB PO SCH ×2 (08:00→08:02)
[2017-06-26] MEDS ORDERED: BACT800T5 PO (09:55)
== END 2017-06-26 13:10 | DRG 698 ==
LOC: NEPE 00:40 → NEDA 02:28 → NEDH 06:22 → HCIS 07:45
PROVIDERS: ADMIT Hospitalist; ATTEND Hospitalist
DX: T83.511A Infection and inflammatory reaction due to indwelling urethral catheter, initial encounter (principal); G93.41 Metabolic encephalopathy; A41.9 Sepsis, unspecified organism; I48.0 Paroxysmal atrial fibrillation; E87.2 Acidosis; I42.9 Cardiomyopathy, unspecified; I27.2 Other secondary pulmonary hypertension; E86.0 Dehydration; R00.1 Bradycardia, unspecified; I13.0 Hypertensive heart and chronic kidney disease with heart failure and stage 1 through stage 4 chronic kidney disease, or unspecified chronic kidney disease; I50.9 Heart failure, unspecified; D64.9 Anemia, unspecified; I34.0 Nonrheumatic mitral (valve) insufficiency; E03.9 Hypothyroidism, unspecified; N39.0 Urinary tract infection, site not specified; I25.10 Atherosclerotic heart disease of native coronary artery without angina pectoris; R53.81 Other malaise; Y84.6 Urinary catheterization as the cause of abnormal reaction of the patient, or of later complication, without mention of misadventure at the time of the procedure; E78.5 Hyperlipidemia, unspecified; R91.1 Solitary pulmonary nodule; N40.0 Benign prostatic hyperplasia without lower urinary tract symptoms; K57.90 Diverticulosis of intestine, part unspecified, without perforation or abscess without bleeding; N18.2 Chronic kidney disease, stage 2 (mild); Z87.891 Personal history of nicotine dependence; Z95.1 Presence of aortocoronary bypass graft; I25.2 Old myocardial infarction; Z95.5 Presence of coronary angioplasty implant and graft; Z79.01 Long term (current) use of anticoagulants
CPT/HCPCS: 70450; 71010; 80048; 80053; 80162; 81001; 82140; 83605; 84443; 84484; 85025; 85610; 85730; 87086; 93005; 96365; J0696; J7030; J7040

== ENCOUNTER 2018-01-25 03:34 | Emergency (ER) | payer MEDICARE ==
[~2018-01-25] VITALS: Ht 188 cm; Wt 75.1 kg
[~2018-01-25 03:34] MED LIST changes: +BACT800T5 PO; -DIGO0.12 PO; -LEVO75TA3 PO; +METO1TAB9 PO; -METO50TA11 PO; +SYNT88TA PO
[2018-01-25 03:38] VITALS: BP 122/66; PULSE 99; RESP 18; TEMP 97.7; O2SAT 98
--- NOTE | 2018-01-25 03:46 | PD ---
HPI Chief Complaint: CLOGGED CATHETER Time Seen by Provider: 03:42 Travel History International Travel<30 days: No Contact w/Intl Traveler<30days: No Traveled to known affect area: No History of Present Illness HPI Patient comes in complaining of not noticing any urine out of his suprapubic catheter. The patient is not in any major discomfort currently. He is just concerned that he has not noticed much urine output and his collection bag. Patient tried to flush it and did not notice any change in urine output. Patient states that he has not being having any abdominal pain, no nausea no vomiting no diarrhea, he is otherwise in his normal state of health. States that his urologist is Dr. AGRAWAL Patient denies any alleviating or aggravating factors currently. Patient denies any associated factors such as fever, flank pain, nausea, vomiting, diarrhea, abdominal pain, chest pain, headache, no visual changes, no sore throat no cough and no runny nose. Patient states that he still spontaneously voids through his penis, patient states that he just noticed that it was decreased urine output through his suprapubic catheter. But he is not otherwise in any other severe pain or discomfort. States allergy to latex Past medical history significant for hypothyroidism, dentures, [place] 9 years ago, congestive heart failure, triple bypass, ablation in 2012, hypercholesterolemia , A. fib a flutter, hypertension, hiatal hernia, bilateral hernia repair, enlarged prostate, bilateral inguinal hernia, PFSH Past Medical History Heart Rhythm Problems: Yes (A-FIB/A-FLUTTER) Cancer: No Cardiac Catheterization: Yes (stenting 1999) Cardiovascular Problems: Yes High Cholesterol: Yes Chest Pain: Yes Congestive Heart Failure: Yes Coronary Artery Disease: Yes Diabetes: No Diminished Hearing: No Endocrine: Yes Gastrointestinal Disorders: Yes Glaucoma: No Genitourinary: Yes Hepatitis: No Hiatal Hernia: Yes Hypertension: Yes Immune Disorder: No Inguinal Hernia: Yes (bilat) Musculoskeletal: No Neurologic: No Psychiatric: No Reproductive: No Respiratory: Yes Integumentary: No Myocardial Infarction: Yes Radiation Therapy: Yes (FOR THYROID ) Shingles: Yes (1989) Thyroid Disease: Yes Past Surgical History Abdominal Surgery: Yes (AMADO HERNIA REPAIR, HEMORRHOIDS 2X) Cardiac Surgery: Yes (3X BIPASS SURGERY 9 YRS AGO, STENT/cardiac ablation 2012) Coronary Artery Bypass Graft: Yes (2000) Ear Surgery: No Endocrine Surgery: No Eye Surgery: No Genitourinary Surgery: No Gynecologic Surgery: No Oral Surgery: No Thoracic Surgery: No Other Surgery: Yes Social History Alcohol Use: No Tobacco Use: Yes (former) Substance Use: No Allergies-Medications (Allergen,Severity, Reaction): Coded Allergies: latex (Unverified Allergy, Mild, rash, 01/25/18) Reported Meds & Prescriptions Reported Meds & Active Scripts Active Synthroid (Levothyroxine Sodium) 88 Mcg Tab 88 Mcg PO DAILY@0600 Aspirin Low Strength (Aspirin) 81 Mg Chew 81 Mg CHEW DAILY Amiodarone (Amiodarone HCl) 200 Mg Tab 200 Mg PO DAILY Reported Tamsulosin (Tamsulosin HCl) 0.4 Mg Cap 0.4 Mg PO HS Pradaxa (Dabigatran) 150 Mg Cap 150 Mg PO BID Nitrostat SL (Nitroglycerin) 0.4 Mg Subl 0.4 Mg SL DIRECTED PRN 1 tablet under the tongue as needed for chest pain. Repeat every 5 minutes for a total of 3 DOSES or call 911 if NO relief. Metoprolol Succinate ER 24 HR (Metoprolol Succinate) 50 Mg Tab 1.5 Tab PO HS Isosorbide Mononitrate ER (Isosorbide Mononitrate) 30 Mg Lew 30 Mg PO DAILY Multi-Vitamin Daily (Multiple Vitamin) 1 Tab Tab 1 Tab PO DAILY Cartia Xt (Diltiazem ER 24 HR) 120 Mg Caper 240 Mg PO DAILY Calcium 600 with Vitamin D (Calcium Carbonate-Cholecalciferol) 600-400 mg-Unit Tab 1 Tab PO DAILY Atorvastatin (Atorvastatin Calcium) 40 Mg Tab 40 Mg PO HS Review of Systems General / Constitutional: No: Fever Eyes: No: Visual changes HENT: No: Headaches Cardiovascular: No: Chest Pain or Discomfort Respiratory: No: Shortness of Breath Gastrointestinal: No: Abdominal Pain Genitourinary: Positive: Decreased Urinary Output Musculoskeletal: No: Pain Skin: No Rash Neurologic: No: Weakness Psychiatric: No: Depression Endocrine: No: Polydipsia Hematologic/Lymphatic: No: Easy Bruising Physical Exam Narrative GENERAL: SKIN: Warm and dry. HEAD: Atraumatic. Normocephalic. EYES: Pupils equal and round. No scleral icterus. No injection or drainage. ENT: No nasal bleeding or discharge. Mucous membranes pink and moist. NECK: Trachea midline. No JVD. CARDIOVASCULAR: Regular rate and rhythm. RESPIRATORY: No accessory muscle use. Clear to auscultation. Breath sounds equal bilaterally. GASTROINTESTINAL: Abdomen soft, non-tender, nondistended. A suprapubic 16 Welsh catheter is noted. MUSCULOSKELETAL: Extremities without clubbing, cyanosis, or edema. No obvious deformities. NEUROLOGICAL: Awake and alert. No obvious cranial nerve deficits. Motor grossly within normal limits. Five out of 5 muscle strength in the arms and legs. Normal speech. PSYCHIATRIC: Appropriate mood and affect; insight and judgment normal. Data Data Last Documented VS Vital Signs Date Time Temp Pulse Resp B/P (MAP) Pulse Ox O2 Delivery O2 Flow Rate FiO2 01/25/18 03:38 97.7 99 18 122/66 (84) 98 MDM Medical Decision Making Medical Screen Exam Complete: Yes Emergency Medical Condition: Yes Medical Record Reviewed: Yes Differential Diagnosis Clogged suprapubic catheter versus catheter malfunction Narrative Course Nurse irrigated the suprapubic tube , exchanged the leg baG, but did not appear to drain adequately..... The patient feels comfortable and would like to go see his urologist to have it removed or replaced if that is what is necessary. I agree with the patient's request and patient was not in any acute distress, so he will be referred to Dr. Wagner for catheter care and possible replacement. A new leg bag will be given to the patient as well as irrigation set because he used his own. Diagnosis Primary Impression: Suprapubic catheter care Referrals: Ronald Wagner MD Call and make an appointment to follow-up today, to have your catheter evaluated for proper functioning Patient Instructions: Weems Catheter Placement and Care (ED), General Instructions Disposition: 01 DISCHARGE HOME Condition: Stable Ko Dimas MD January 25, 2018 03:46
[2018-01-25] MEDS ORDERED: TAMS0.4C4 PO (03:59)
== END 2018-01-25 04:41 | disposition home or self-care (01) ==
LOC: PHED 03:34
DX: T83.9XXA Unspecified complication of genitourinary prosthetic device, implant and graft, initial encounter (principal); E03.9 Hypothyroidism, unspecified; I11.0 Hypertensive heart disease with heart failure; I50.9 Heart failure, unspecified; I25.10 Atherosclerotic heart disease of native coronary artery without angina pectoris; E78.00 Pure hypercholesterolemia, unspecified; I48.91 Unspecified atrial fibrillation; I25.2 Old myocardial infarction; E07.9 Disorder of thyroid, unspecified
CPT/HCPCS: 99281